=== PATIENT | female | born 1960 | race African-American/Black ===

== ENCOUNTER 2017-09-16 21:40 | Observation (INO) ==
--- NOTE | 2017-09-16 22:13 | ED ---
HPI General Chief Complaint: Shortness of Breath/Dyspnea Stated Complaint: SOB Time Seen by Provider: 09/16/17 21:55 Source: patient Mode of arrival: EMS Limitations: no limitations History of Present Illness 57-year-old female complains of shortness of breath. Patient states that his symptoms started yesterday. Patient states that she had productive cough and shortness of breath since yesterday. Patient states that she has intermittent fever at home. Patient denies any chest pain. Patient has history of COPD. Patient is a smoker. Patient has not been using her inhaler or nebulizer treatment at home. Patient also has history hypertension, high lipidemia. EMS was called. Patient was given DuoNeb unit dose treatment 1 and Solu-Medrol 125 mg IV on with ED. Patient states that she feeling better now. Patient also has been taking clindamycin 300 mg 3 times a day as needed for dental infection recently. Patient states that she has intermittent swelling lower extremity recently, worse for the past 3 days. Patient denies any recent injury to the lower extremity. Patient denies any history of DVT or PE. Complaint: shortness of breath and cough Onset (ago): day(s) Context: medication noncompliance and smoke/fume exposure Severity: severe Consistency/Duration: constant and progressively worsening Relieving factors: bronchodilators Exacerbating factors: nothing Known history of: COPD Associated symptoms: fever, cough, wheezing, sputum production and lower extremity pain Treatment prior to arrival: bronchodilator Related Data Home oxygen amount: none Home Medications Medication Instructions Recorded Confirmed amlodipine 10 mg PO DAILY 09/16/17 09/16/17 clindamycin HCl 300 mg PO TID 09/16/17 09/16/17 clonidine HCl 0.2 mg PO BID 09/16/17 09/16/17 hydralazine 25 mg PO QID 09/16/17 09/16/17 losartan 25 mg PO DAILY 09/16/17 09/16/17 oxycodone-acetaminophen 1 tab PO Q4-6H PRN 09/16/17 09/16/17 Allergies Allergy/AdvReac Type Severity Reaction Status Date / Time No Known Allergies Allergy Unverified 09/16/17 21:51 Review of Systems Except as stated in HPI: all other systems reviewed are negative [facility], [facility] Medical History Medical History Asthma (Acute) COPD (chronic obstructive pulmonary disease) (Acute) GERD (gastroesophageal reflux disease) (Acute) Social History Social History Substance History: No History of Abuse Smoking Status: Current every day smoker Tobacco Type: Cigarettes How Often Do You Have a Drink Containing Alcohol: Monthly or less Recent Travel in [facility] within the Last 8 Weeks: No Recent Out of Country Travel within the Last 8 Weeks: No Immunization History Tetanus Immunization: Unsure Hx Influenza Vaccine This Season: No Exam Narrative Exam Narrative: GENERAL: Well-nourished, well-developed patient. SKIN: Focused skin assessment warm/dry. HEAD: Normocephalic. EYES: No scleral icterus. No injection or drainage. NECK: Supple, trachea midline. No JVD or lymphadenopathy. CARDIOVASCULAR: Regular rate and rhythm without murmurs, gallops, or rubs. RESPIRATORY: Breath sounds equal bilaterally. No accessory muscle use. Patient has moderate expiratory wheezes bilaterally. Few rhonchi at the bases. GASTROINTESTINAL: Abdomen soft, non-tender, nondistended. MUSCULOSKELETAL: No cyanosis, or edema. BACK: Nontender without obvious deformity. No CVA tenderness. Neurologic exam normal. Course Initial Documented Vital Signs Temperature 99.0 F 09/16/17 21:51 Pulse Rate 91 H 09/16/17 21:51 Respiratory Rate 20 09/16/17 21:51 Blood Pressure 148/106 H 09/16/17 21:51 Pulse Oximetry 94 L 09/16/17 21:51 Last Documented Vital Signs Temperature 99.0 F 09/16/17 21:51 Pulse Rate 84 09/16/17 23:58 Respiratory Rate 18 09/16/17 23:58 Blood Pressure 145/99 H 09/16/17 23:58 Pulse Oximetry 96 09/16/17 23:58 Medical Decision Making MDM Narrative Medical decision making narrative: 57-year-old female with complains of shortness of breath. History of COPD. Patient has not been using her inhaler and nebulizer machine at home as directed. Patient is a smoker. EMS was called. Patient was given DuoNeb 1 and so Medrol [address] IV [address] the way to the ED. Albuterol with Atrovent unit dose treatment 2. Differential Diagnosis Differential Diagnosis: Differential diagnosis including acute exacerbation COPD , bronchitis, pneumonia, PE, pneumothorax. Lab Data Lab results reviewed: Yes I reviewed the patient's lab results. Result diagrams: 09/16/17 22:15 09/16/17 22:15 Lab Results 09/16/17 09/16/17 09/16/17 Range/Units 22:15 22:15 22:15 WBC 4.0 (4.0-11.0) th/mm3 RBC 4.37 (4.00-5.30) mil/mm3 Hgb 11.9 (11.6-15.3) gm/dL Hct 35.9 (35.0-46.0) % MCV 82.1 (80.0-100.0) fL MCH 27.3 (27.0-34.0) pg MCHC 33.3 (32.0-36.0) % RDW 15.5 (11.6-17.2) % Plt Count 219 (150-450) th/mm3 MPV 7.8 (7.0-11.0) fL Neut % (Auto) 65.7 (16.0-70.0) % Lymph % (Auto) 21.2 (9.0-44.0) % [place] % (Auto) 12.2 H (0.0-8.0) % Eos % (Auto) 0.4 (0.0-4.0) % Baso % (Auto) 0.5 (0.0-2.0) % Neut # (Auto) 2.6 (1.8-7.7) th/mm3 Lymph # (Auto) 0.9 L (1.0-4.8) th/mm3 [place] # (Auto) 0.5 (0.0-0.9) th/mm3 Eos # (Auto) 0.0 (0.0-0.4) th/mm3 Baso # (Auto) 0.0 (0.0-0.2) th/mm3 WBC Differential . Differential Comment Auto diff final PT 11.9 H (9.8-11.6) sec INR 1.2 Ratio APTT 30.0 (24.3-30.1) sec Sodium 137 (136-145) meq/L Potassium 4.0 (3.5-5.1) meq/L Chloride 105 (98-107) meq/L Carbon Dioxide 27.5 (21.0-32.0) meq/L Anion Gap 5 (5-15) meq/L BUN 18 (7-18) mg/dL Creatinine 1.12 H (0.50-1.00) mg/dL Estimated GFR 61 L (>89) mL/min Random Glucose 100 (74-106) mg/dL Calcium 8.2 L (8.5-10.1) mg/dL Total Bilirubin 0.3 (0.2-1.0) mg/dL AST 31 (15-37) U/L ALT 19 (10-53) U/L Alkaline Phosphatase 128 H (45-117) U/L B-Natriuretic Peptide (0-100) pg/mL Total Protein 7.5 (6.4-8.2) g/dL Albumin 2.5 L (3.4-5.0) g/dL 09/16/17 Range/Units 22:15 WBC (4.0-11.0) th/mm3 RBC (4.00-5.30) mil/mm3 Hgb (11.6-15.3) gm/dL Hct (35.0-46.0) % MCV (80.0-100.0) fL MCH (27.0-34.0) pg MCHC (32.0-36.0) % RDW (11.6-17.2) % Plt Count (150-450) th/mm3 MPV (7.0-11.0) fL Neut % (Auto) (16.0-70.0) % Lymph % (Auto) (9.0-44.0) % [place] % (Auto) (0.0-8.0) % Eos % (Auto) (0.0-4.0) % Baso % (Auto) (0.0-2.0) % Neut # (Auto) (1.8-7.7) th/mm3 Lymph # (Auto) (1.0-4.8) th/mm3 [place] # (Auto) (0.0-0.9) th/mm3 Eos # (Auto) (0.0-0.4) th/mm3 Baso # (Auto) (0.0-0.2) th/mm3 WBC Differential Differential Comment PT (9.8-11.6) sec INR Ratio APTT (24.3-30.1) sec Sodium (136-145) meq/L Potassium (3.5-5.1) meq/L Chloride (98-107) meq/L Carbon Dioxide (21.0-32.0) meq/L Anion Gap (5-15) meq/L BUN (7-18) mg/dL Creatinine (0.50-1.00) mg/dL Estimated GFR (>89) mL/min Random Glucose (74-106) mg/dL Calcium (8.5-10.1) mg/dL Total Bilirubin (0.2-1.0) mg/dL AST (15-37) U/L ALT (10-53) U/L Alkaline Phosphatase (45-117) U/L B-Natriuretic Peptide 784 H (0-100) pg/mL Total Protein (6.4-8.2) g/dL Albumin (3.4-5.0) g/dL Imaging Data Radiologist's impression: Chest X-Ray 09/16/17 22:02 CONCLUSION: 1. Hyperlucency of the left lung base indicating a possible basilar pneumothorax. Defined pleural line is not seen. This could be further evaluated with left side up decubitus chest radiograph or with noncontrast chest CT. 2. Enlarged cardiac silhouette. 3. Hyperaeration of the lungs suggesting possible emphysema. Discharge Plan Discharge Disposition Patient Disposition: 30 Still Patient Discharge Details Diagnosis: Acute exacerbation of chronic obstructive airways disease Physicians Team ED Provider: Phil Dominguez Primary Care Provider: Primary Care Gretchen Rucker Rxs /Orders / Referrals /Forms Prescriptions: No Action clindamycin HCl 150 mg Capsule 300 mg PO TID RF: 0 hydralazine 25 mg Tablet 25 mg PO QID RF: 0 oxycodone-acetaminophen 5-325 mg Tablet 1 tab PO Q4-6H PRN (Reason: Pain) RF: 0 clonidine HCl 0.2 mg Tablet 0.2 mg PO BID RF: 0 amlodipine 10 mg Tablet 10 mg PO DAILY RF: 0 losartan 25 mg Tablet 25 mg PO DAILY RF: 0 Discharge Interventions Interventions: Vital Signs Last Done: 09/16/17 23:58 Status ED Status: With Doctor
--- NOTE | 2017-09-16 22:35 | XR ---
EXAM DATE: 09/16/2017 10:19 PM EDT AGE/SEX: 57 years / Female INDICATIONS: Shortness of breath today. CLINICAL DATA: This is the patient's initial encounter. Patient reports that signs and symptoms have been present for 1 day and indicates a pain score of 1/10. MEDICAL/SURGICAL HISTORY: None. None. COMPARISON: No prior exams available for comparison. FINDINGS: Single AP view the chest. Hyperaeration of the lungs suggesting possible emphysema. There is asymmetr ic lucency at the left lung base indicating possible basilar pneumothorax. A discrete pleural line is not identified. Lungs are clear. Cardiac silhouette is mildly enlarged. No evidence of pleural effus ion. CONCLUSION: 1. Hyperlucency of the left lung base indicating a possible basilar pneumothorax. Defined pleural li ne is not seen. This could be further evaluated with left side up decubitus chest radiograph or with noncontrast chest CT. 2. Enlarged cardiac silhouette. 3. Hyperaeration of the lungs suggesting possible emphysema. Electronically signed by: Panchito Pickett MD 09/16/2017 10:33 PM EDT
[2017-09-16 22:50] LABS: Baso % (Auto) 0.5 % (0.0-2.0); Eos % (Auto) 0.4 % (0.0-4.0); Hematocrit 35.9 % (35.0-46.0); Hemoglobin 11.9 gm/dL (11.6-15.3); Lymph # (Auto) 0.9 th/mm3 (1.0-4.8); Lymph % (Auto) 21.2 % (9.0-44.0); Mean Corpuscular HGB Conc 33.3 % (32.0-36.0); Mean Corpuscular Hemoglobin 27.3 pg (27.0-34.0); Mean Corpuscular Volume 82.1 fL (80.0-100.0); Mean Platelet Volume 7.8 fL (7.0-11.0); Mono # (Auto) 0.5 th/mm3 (0.0-0.9); Mono % (Auto) 12.2 % (0.0-8.0); Neut # (Auto) 2.6 th/mm3 (1.8-7.7); Neut % (Auto) 65.7 % (16.0-70.0); Platelet Count 219 th/mm3 (150-450); Red Blood Count 4.37 mil/mm3 (4.00-5.30); Red Cell Distribution Width 15.5 % (11.6-17.2)
[2017-09-16 23:06] LABS: INR 1.2 Ratio; Prothrombin Time 11.9 sec (9.8-11.6)
[2017-09-16 23:11] LABS: Alkaline Phosphatase 128 U/L (45-117); Total Protein 7.5 g/dL (6.4-8.2)
[2017-09-16 23:22] LABS: Alanine Aminotransferase 19 U/L (10-53); Albumin 2.5 g/dL (3.4-5.0); Anion Gap 5 meq/L (5-15); Aspartate Aminotransferase 31 U/L (15-37); Blood Urea Nitrogen 18 mg/dL (7-18); Calcium 8.2 mg/dL (8.5-10.1); Carbon Dioxide 27.5 meq/L (21.0-32.0); Chloride 105 meq/L (98-107); Glomerular Filtration Rate 61 mL/min (>89); Glucose,Random 100 mg/dL (74-106); Sodium 137 meq/L (136-145)
--- NOTE | 2017-09-17 02:36 | CT ---
EXAM DATE: 09/17/2017 2:16 AM EDT AGE/SEX: 57 years / Female INDICATIONS: Dyspnea. Evaluate for pneumothorax. CLINICAL DATA: This is the patient's initial encounter. Patient reports that signs and symptoms have been present for 1 day and indicates a pain score of 3/10. MEDICAL/SURGICAL HISTORY: Chronic obstructive pulmonary disease. None. RADIATION DOSE: 5.10 CTDI (mGy) [place] [facility] [place]. . TECHNIQUE: Multiple contiguous axial images were obtained through the chest without contrast. Image s were obtained in suspended respiration using multiple row detector helical technique. Using automa jenifer exposure control and adjustment of the mA and/or kV according to patient size, radiation dose was kept as low as reasonably achievable to obtain optimal diagnostic quality images. DICOM format imag e data is available electronically for review and comparison. FINDINGS: Lungs: There is prominence to the interstitium of the upper and mid lungs. There is a small infiltra te with irregular margins and absence of air bronchograms in the posterior lateral right lower lung a nd several small pulmonary cysts in the lower right lung. There is hyperaeration of the left lower gloria ng which would account for the lucency seen on chest x-ray. No evidence of pneumothorax on either tiana e. Mediastinum: There is good visualization of the great vessels of the middle mediastinum. No evidenc e of mediastinal or hilar adenopathy/mass. Moderate panchamber cardiomegaly. Pleurae: No evidence of focal thickening or pleural effusion. Axillae: Unremarkable. Bony Structures: Unremarkable. CONCLUSION: 1. No evidence of pneumothorax. 2. Diffuse moderate severity interstitial disease in the mid and upper lungs bilaterally and patchy area of infiltrate in the posterior lateral right lower lung. Electronically signed by: Yinka Benito MD 09/17/2017 2:35 AM EDT
[2017-09-17] MEDS ORDERED: Bisacodyl 10 MG Supp RECTAL PRN (02:40)
[2017-09-17] MEDS ORDERED: Acetaminophen 325 MG Tablet PO PRN (02:40)
[2017-09-17] MEDS ORDERED: Temazepam 15 MG Capsule PO PRN (02:40)
[2017-09-17] MEDS ORDERED: Morphine Inj 4 MG/ML Vial IV.PUSH PRN (02:41)
--- NOTE | 2017-09-17 03:18 | P.HPIM ---
History of Present Illness Primary Care Physician: No Primary Care Physician History of Present Illness: This is a 57-year-old female with a PMH of HTN, COPD and Tobacco Abuse who presents the ER with complaints of SOB, wheezing and chest pain x1 day. Reports non-productive cough, but no sick contacts. Also notes bilateral lower extremity edema x3 days. No h/o CHF. On arrival, BP 145/99, HR 84, O2 sat 96% on 3L NC, Afebrile. CBC unremarkable. INR 1.2. Creatinine 1.12, no previous labs for comparison. BNP 784. CXR with hyperlucency left lung base possibly basilar pneumothorax. CT Chest with no evidence of pneumothorax, patchy infiltrate posterior lateral right lower lung. - Diagnosis (1) Chest pain (2) COPD (chronic obstructive pulmonary disease) (3) Lower extremity edema (4) Tobacco abuse Inpatient Certification: I certify that the inpatient services were ordered in accordance with Medicare regulations governing the order. This includes certification that hospital inpatient services are reasonable and necessary and in the case of services not specified as inpatient-only under 42 CFR 419.22(n), that they are appropriately provided as inpatient services in accordance to with the 2-midnight benchmark under 43 CFR 412.3(e) Review of Systems PAST FAMILY HISTORY: Reviewed. 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 - Medical History Medical History: Medical History (Last Reviewed 09/16/17 @ 22:08 by Phil Dominguez MD) Asthma COPD (chronic obstructive pulmonary disease) GERD (gastroesophageal reflux disease) - Tobacco History Tobacco Use In Past 30 Days: Yes Smoking Status: Current every day smoker Tobacco Type: Cigarettes - Alcohol History How Often Do You Have a Drink Containing Alcohol: Monthly or less - Substance Use History Substance History: No History of Abuse - Travel History Recent Travel in the [place] Within the Last 8 Weeks: No Recent Travel Out of the Country Within the Last 8 Weeks: No - Immunization History Tetanus Immunization: Unsure Hx Influenza Vaccine This Season: No Medications and Allergies Active Medications: Active Medications Acetaminophen (Tylenol) 650 mg PO Q4H PRN PRN Reason: Temp > 100.4 Hydrocodone Bitart/Acetaminophen ([place] 5/325) 1 tab PO Q4H PRN PRN Reason: PAIN 3-5 Al Hydroxide/Mg Hydroxide (Milk Of Magnesia Liq) 30 ml PO Q12H PRN PRN Reason: Mild Constipation Albuterol (Duoneb Neb (Prn)) 1 ampul NEB Q2HR NEB PRN PRN Reason: SOB/WHEEZING Albuterol (Duoneb Neb (Arnie)) 1 ampul NEB Q4HR WHILE AWAKE NEB [facility] Bisacodyl (Dulcolax Supp) 10 mg RECTAL DAILY PRN PRN Reason: SEVERE CONSITIPATION Budesonide/Formoterol Fumarate (Symbicort 160/4.5 Mcg Inh) 2 puff INH BID [facility] Guaifenesin (Mucinex Er) 600 mg PO BID [facility] Heparin Sodium (Porcine) (Heparin Inj) 5,000 units SQ Q12H [facility] Lactulose (Lactulose Liq) 30 ml PO DAILY PRN PRN Reason: SEVERE CONSITIPATION Methylprednisolone Sodium Succinate (Solumedrol Inj) 40 mg IV.PUSH Q6H ARNIE Morphine Sulfate (Morphine Inj) 2 mg IV.PUSH Q4H PRN PRN Reason: PAIN 6-10 Ondansetron HCl (Zofran Inj) 4 mg IV.PUSH Q6H PRN PRN Reason: NAUSEA OR VOMITING Senna/Docusate Sodium (Vianca-Colace) 1 tab PO BID [facility] Sennosides (Senokot) 17.2 mg PO Q12H PRN PRN Reason: Moderate Constipation Temazepam (Restoril) 15 mg PO HS PRN PRN Reason: INSOMNIA Allergies Allergy/AdvReac Type Severity Reaction Status Date / Time No Known Allergies Allergy Unverified 09/16/17 21:51 Home Medications Medication Instructions Recorded Confirmed Type amlodipine 10 mg PO DAILY 09/16/17 09/16/17 History clindamycin HCl 300 mg PO TID 09/16/17 09/16/17 History clonidine HCl 0.2 mg PO BID 09/16/17 09/16/17 History hydralazine 25 mg PO QID 09/16/17 09/16/17 History losartan 25 mg PO DAILY 09/16/17 09/16/17 History oxycodone-acetaminophen 1 tab PO Q4-6H PRN 09/16/17 09/16/17 History Exam Vital signs: Vital Signs 09/16/17 21:51 09/16/17 22:08 09/16/17 22:30 Temperature 99.0 F Pulse Rate 91 H 87 87 Respiratory Rate 20 16 16 Blood Pressure 148/106 H Pulse Oximetry 94 L 09/16/17 23:58 09/17/17 01:48 Temperature Pulse Rate 84 81 Respiratory Rate 18 18 Blood Pressure 145/99 H 148/96 H Pulse Oximetry 96 95 Intake & Output 09/16/17 09/16/17 09/17/17 06:59 18:59 06:59 Weight 45.359 kg Narrative: PE: GENERAL: Middle-aged black female in no acute distress. HEENT: PERRLA, EOMI. No scleral icterus or conjunctival pallor. No lid lag or facial droop. CARDIOVASCULAR: Regular rate and rhythm. No obvious murmurs to auscultation. No chest tenderness to palpation. RESPIRATORY: No obvious rhonchi. Occasional wheezing. Clear to auscultation. Breath sounds equal bilaterally. GASTROINTESTINAL: Abdomen soft, non-tender, nondistended. BS normal. MUSCULOSKELETAL: Extremities without clubbing, cyanosis, 2+edema. No obvious deformities. NEUROLOGICAL: Awake, alert and oriented x4. No focal neurologic deficits. Moving both upper and lower extremities spontaneously. Results - Labs CBC & Chem 7: 09/16/17 22:15 09/16/17 22:15 Labs: Short CBC 09/16/17 Range/Units 22:15 WBC 4.0 (4.0-11.0) th/mm3 Hgb 11.9 (11.6-15.3) gm/dL Hct 35.9 (35.0-46.0) % Plt Count 219 (150-450) th/mm3 BMP 09/16/17 22:15 Sodium 137 Potassium 4.0 Chloride 105 Carbon Dioxide 27.5 BUN 18 Creatinine 1.12 H Calcium 8.2 L Liver Function 09/16/17 Range/Units 22:15 Total Bilirubin 0.3 (0.2-1.0) mg/dL AST 31 (15-37) U/L ALT 19 (10-53) U/L Alkaline Phosphatase 128 H (45-117) U/L Albumin 2.5 L (3.4-5.0) g/dL - Imaging Impressions Chest X-Ray 09/16/17 22:02 CONCLUSION: 1. Hyperlucency of the left lung base indicating a possible basilar pneumothorax. Defined pleural line is not seen. This could be further evaluated with left side up decubitus chest radiograph or with noncontrast chest CT. 2. Enlarged cardiac silhouette. 3. Hyperaeration of the lungs suggesting possible emphysema. Chest CT 09/17/17 01:27 CONCLUSION: 1. No evidence of pneumothorax. 2. Diffuse moderate severity interstitial disease in the mid and upper lungs bilaterally and patchy area of infiltrate in the posterior lateral right lower lung. Caprini VTE Risk Assessment Caprini VTE Risk Assessment: No/Low Risk (score <= 1) Caprini Risk Assessment Model: Point Value = 1 Point Value = 2 Point Value = 3 Point Value = 5 Age 41-60 Minor surgery BMI > 25 kg/m2 Swollen legs Varicose veins or History of unexplained or recurrent spontaneous Oral contraceptives or hormone replacement Sepsis (< 1 month) Serious lung disease, including pneumonia (< 1 month) Abnormal pulmonary function Acute myocardial infarction Congestive heart failure (< 1 month) History of inflammatory bowel disease Medical patient at bed rest Age 61-74 Arthroscopic surgery Major open surgery (> 45 min) Laparoscopic surgery (> 45 min) Malignancy Confined to bed (> 72 hours) Immobilizing plaster cast Central venous access Age >= 75 History of VTE Family history of VTE Factor V Leiden Prothrombin [id number] Lupus anticoagulant Anticardiolipin antibodies Elevated serum homocysteine Heparin-induced thrombocytopenia Other congenital or acquired thrombophilia Stroke (< 1 month) Elective arthroplasty Hip, pelvis, or leg fracture Acute spinal cord injury (< 1 month) Prophylaxis Regimen: Total Risk Factor Score Risk Level Prophylaxis Regimen 0-1 Low Early ambulation 2 Moderate Order ONE of the following: *Sequential Compression Device (SCD) *Heparin 5000 units SQ BID 3-4 Higher Order ONE of the following medications: *Heparin 5000 units SQ TID *Enoxaparin/Lovenox 40 mg SQ daily (WT < 150 kg, CrCl > 30 mL/min) *Enoxaparin/Lovenox 30 mg SQ daily (WT < 150 kg, CrCl > 10-29 mL/min) *Enoxaparin/Lovenox 30 mg SQ BID (WT < 150 kg, CrCl > 30 mL/min) AND/OR *Sequential Compression Device (SCD) 5 or more Highest Order ONE of the following medications: *Heparin 5000 units SQ TID (Preferred with Epidurals) *Enoxaparin/Lovenox 40 mg SQ daily (WT < 150 kg, CrCl > 30 mL/min) *Enoxaparin/Lovenox 30 mg SQ daily (WT < 150 kg, CrCl > 10-29 mL/min) *Enoxaparin/Lovenox 30 mg SQ BID (WT < 150 kg, CrCl > 30 mL/min) AND *Sequential Compression Device (SCD) Assessment and Plan - Assessment (1) Chest pain Code(s): R07.9 - Chest pain, unspecified Status: Acute (2) COPD (chronic obstructive pulmonary disease) Code(s): J44.9 - Chronic obstructive pulmonary disease, unspecified Status: Acute (3) Lower extremity edema Code(s): R60.0 - Localized edema Status: Acute (4) Tobacco abuse Code(s): Z72.0 - Tobacco use Status: Acute - Plan A/P: 1. COPD: Chronic Respiratory Failure w/ Acute Exacerbation. Moderate to Severe, s/p Solu-Medrol and DuoNeb by EMS w/ some improvement, but persistent SOB/wheezing. Solu-Medrol q6h, DuoNeb q4 and q2h prn, Symbicort, Mucinex. 2. Chest Pain: likely secondary to above. Initial trop negative, will check serial cardiac enzymes. CXR w/ possible pneumothorax, however CT Chest negative for pneumo, +infiltrate, will start on Levaquin. 3. Lower Ext Edema: denies h/o CHF, BNP elevated at 784, CXR w/ no pleural effusions, will check Echo to eval for underlying cardiomyopathy. 4. Tobacco Abuse: Pt counselled. Ativan prn. Avoid NicoDerm in light of chest pain to avoid vasoconstriction. 5. DVT Prophylaxis: SCD/Teds 6. Social work for d/c planning as needed 7. Case discussed w/ ER physician at length, labs/records/imaging reviewed by me.
[2017-09-17] MEDS: MethylPREDNISolone Sod Succinate Inj 40 MG/ML Vial IV.PUSH SCH ×2 (03:22→08:42)
--- NOTE | 2017-09-17 08:48 | ECG ---
Date Performed: 09/16/2017 Time Performed: 21:52:20 PTAGE: 57 years EKG: Sinus rhythm RIGHT ATRIAL ENLARGEMENT LEFT ATRIAL ENLARGEMENT BORDERLINE RIGHT AXIS DEVIATION MODERATE T-WAVE ABN ORMALITY, CONSIDER ANTERIOR ISCHEMIA ABNORMAL ECG NO PREVIOUS TRACING DOCTOR: Kandy Baker Interpretating Date/Time 09/17/2017 08:46:32
[2017-09-17] MEDS ORDERED: Heparin - SQ 10,000 UNITS/ML Vial SQ SCH (09:00)
[2017-09-17] MEDS ORDERED: Budesonide-Formoterol 160/4.5 MCG 6 GM Inhaler INH SCH ×2 (09:00)
[2017-09-17] MEDS ORDERED: Senna/Docusate Sodium 8.6/50 MG Tablet PO SCH (09:00)
[2017-09-17] MEDS ORDERED: hydrALAZINE 25 MG Tablet PO SCH (09:00)
[2017-09-17] MEDS ORDERED: amLODIPine 10 MG Tablet PO SCH (09:00)
[2017-09-17] MEDS ORDERED: guaiFENesin 600 MG ER Tablet PO SCH (09:00)
--- NOTE | 2017-09-17 09:29 | P.PN ---
Subjective Interval history: Follow up for COPD Exacerbation, possible cardiomyopathy. Patient is currently resting in bed. No acute concerns. No chest pain, fever or chills. She does report significant fatigue and shortness of breath on minor ambulation. Currently on nasal cannula 2 L. Physical Exam Vital signs: Vital Signs 09/16/17 21:51 09/16/17 22:08 09/16/17 22:30 Temperature 99.0 F Pulse Rate 91 H 87 87 Respiratory Rate 20 16 16 Blood Pressure 148/106 H Pulse Oximetry 94 L 09/16/17 23:58 09/17/17 01:48 09/17/17 03:50 Temperature 97.7 F Pulse Rate 84 81 62 Respiratory Rate 18 18 22 Blood Pressure 145/99 H 148/96 H 154/101 H Pulse Oximetry 96 95 09/17/17 04:08 09/17/17 07:09 09/17/17 07:27 Temperature 98.2 F Pulse Rate 79 74 80 Respiratory Rate 16 24 18 Blood Pressure 164/100 H Pulse Oximetry 09/17/17 09:00 Temperature Pulse Rate 74 Respiratory Rate Blood Pressure Pulse Oximetry Intake & Output 09/16/17 09/17/17 09/17/17 18:59 06:59 18:59 Intake Total 150 / 150 Balance 150 / 150 Weight 45.359 kg Intake: IV 150 / 150 Levaquin 750 mg Premix Inj 150 150 / 150 ML @ 100 mls/hr IV.SIG Q24H [facility] Rx#:[id number] Narrative: GENERAL: Alert, Oriented x 3, NAD. SKIN: Warm and dry. HEAD: Normocephalic. EYES: No scleral icterus. No injection or drainage. NECK: Supple, trachea midline. No JVD or lymphadenopathy. CARDIOVASCULAR: Regular rate and rhythm without murmurs, gallops, or rubs. RESPIRATORY: Posterior expiratory rhonchi, moderate air entry, no appreciable wheezing, crackles. GASTROINTESTINAL: Abdomen soft, non-tender, nondistended. MUSCULOSKELETAL: No cyanosis. Lower ext 1+ edema. BACK: Nontender without obvious deformity. No CVA tenderness. Results - Labs CBC & Chem 7: 09/16/17 22:15 09/16/17 22:15 Laboratory Results - last 24 hr 09/16/17 09/16/17 09/16/17 22:15 22:15 22:15 WBC 4.0 RBC 4.37 Hgb 11.9 Hct 35.9 MCV 82.1 MCH 27.3 MCHC 33.3 RDW 15.5 Plt Count 219 MPV 7.8 Neut % (Auto) 65.7 Lymph % (Auto) 21.2 [place] % (Auto) 12.2 H Eos % (Auto) 0.4 Baso % (Auto) 0.5 Neut # (Auto) 2.6 Lymph # (Auto) 0.9 L [place] # (Auto) 0.5 Eos # (Auto) 0.0 Baso # (Auto) 0.0 WBC Differential . Differential Comment Auto diff final PT 11.9 H INR 1.2 APTT 30.0 Sodium 137 Potassium 4.0 Chloride 105 Carbon Dioxide 27.5 Anion Gap 5 BUN 18 Creatinine 1.12 H Estimated GFR 61 L Random Glucose 100 Calcium 8.2 L Total Bilirubin 0.3 AST 31 ALT 19 Alkaline Phosphatase 128 H Troponin I B-Natriuretic Peptide Total Protein 7.5 Albumin 2.5 L 09/16/17 09/17/17 22:15 07:05 WBC RBC Hgb Hct MCV MCH MCHC RDW Plt Count MPV Neut % (Auto) Lymph % (Auto) [place] % (Auto) Eos % (Auto) Baso % (Auto) Neut # (Auto) Lymph # (Auto) [place] # (Auto) Eos # (Auto) Baso # (Auto) WBC Differential Differential Comment PT INR APTT Sodium Potassium Chloride Carbon Dioxide Anion Gap BUN Creatinine Estimated GFR Random Glucose Calcium Total Bilirubin AST ALT Alkaline Phosphatase Troponin I 0.03 B-Natriuretic Peptide 784 H Total Protein Albumin Microbiology 09/16/17 22:17 Nasal Wash Influenza Types A,B Antigen - Final Negative for FLU A and B antigen Infection due to influenza A or B cannot be ruled out since the antigen present in the sample may be below the detection limit of the test. - Imaging Impressions Chest X-Ray 09/16/17 22:02 CONCLUSION: 1. Hyperlucency of the left lung base indicating a possible basilar pneumothorax. Defined pleural line is not seen. This could be further evaluated with left side up decubitus chest radiograph or with noncontrast chest CT. 2. Enlarged cardiac silhouette. 3. Hyperaeration of the lungs suggesting possible emphysema. Chest CT 09/17/17 01:27 CONCLUSION: 1. No evidence of pneumothorax. 2. Diffuse moderate severity interstitial disease in the mid and upper lungs bilaterally and patchy area of infiltrate in the posterior lateral right lower lung. Assessment and Plan - Assessment (1) Chest pain Code(s): R07.9 - Chest pain, unspecified Status: Acute (2) COPD (chronic obstructive pulmonary disease) Code(s): J44.9 - Chronic obstructive pulmonary disease, unspecified Status: Acute (3) Lower extremity edema Code(s): R60.0 - Localized edema Status: Acute (4) Tobacco abuse Code(s): Z72.0 - Tobacco use Status: Acute - Plan This is a 57-year-old female with a PMH of HTN, COPD and Tobacco Abuse who presents the ER on 09/17/2017 with complaints of SOB, wheezing and chest pain x1 day. Also notes bilateral lower extremity edema x3 days. No h/o CHF. Chest pain - First troponin was 0.03. Second troponin pending. - Acute coronary syndrome less likely. Possible cardiomyopathy - Likely due to long standing hypertension. BNP 784 on admission. - 2D echo pending. - Will start patient on Lasix 40mg IV Q12hrs for 2 days. She may need Torsemide PO upon discharge. Hypertension - Continue Losartan 25mg Qday but hold Hydralazine and Amlodipine as they might lower BP too much. - If needed, we will slowly introduce other BP meds. She also may need beta nathaly depending on the Echo findings. Probable COPD Exacerbation Right sided Pneumonia - CT chest showed no Pneumothorax. - However CT chest showed diffuse moderate interstitial disease as well as posterior lateral right lower lung infiltrates - Continue supplemental oxygen, breathing treatments, Levaquin 750 mg daily. - Continue Solu-medrol 40mg Q6hrs Full code. Heparin 5000 units every 12 hours SQ. Discharge plan: Possible discharge on 09/18/2017.
--- NOTE | 2017-09-18 14:18 | ECHRPT ---
Indication: Cardiomyopathy CONCLUSIONS The left ventricular systolic function is normal with an estimated ejection fraction in the range of 55-60%. Mild concentric left ventricular hypertrophy. Normal left ventricular size. The right ventricle is dilated. The right atrium is dilated. Atrial septal aneurysm is present. Calcification of both mitral valve leaflets. Trace mitral valve regurgitation. Aortic valve sclerosis is present. There is severe tricuspid regurgitation. The estimated pulmonary arterial pressure is 63.6 mmHg. Mild pulmonary valve regurgitation. BP: / HR: Rhythm: Sinus MEASUREMENTS (Male / Female) Normal Values Technical Quality:Fair 2D ECHO LV Diastolic Diameter PLAX 3.7 cm 4.2 - 5.9 / 3.9 - 5.3 cm LV Systolic Diameter PLAX 2.5 cm IVS Diastolic Thickness 1.2 cm 0.6 - 1.0 / 0.6 - 0.9 cm LVPW Diastolic Thickness 1.0 cm 0.6 - 1.0 / 0.6 - 0.9 cm LV Relative Wall Thickness 0.6 RV Internal Dim ED PLAX 3.4 cm LVOT Diameter 1.9 cm LA Systolic Diameter LX 3.5 cm 3.0 - 4.0 / 2.7 - 3.8 cm M-MODE Aortic Root Diameter MM 2.2 cm LA Systolic Diameter MM 3.4 cm LA Ao Ratio MM 1.5 AV Cusp Separation MM 1.5 cm DOPPLER AV Peak Velocity 156.0 cm/s AV Peak Gradient 9.7 mmHg LVOT Peak Velocity 99.7 cm/s LVOT Peak Gradient 4.0 mmHg AV Area Cont Eq pk 1.8 cm MV Area PHT 2.4 cm Mitral E Point Velocity 58.2 cm/s Mitral A Point Velocity 75.5 cm/s Mitral E to A Ratio 0.8 LV E' Lateral Velocity 6.5 cm/s Mitral E to LV E' Lateral Ratio 8.9 LV E' Septal Velocity 5.2 cm/s Mitral E to LV E' Septal Ratio 11.3 TR Peak Velocity 366.0 cm/s TR Peak Gradient 53.6 mmHg Right Atrial Pressure 10.0 mmHg Pulmonary Artery Systolic Pressu 63.6 mmHg Right Ventricular Systolic Press 63.6 mmHg FINDINGS LEFT VENTRICLE The left ventricular systolic function is normal with an estimated ejection fraction in the range of 55-60%. Mild concentric left ventricular hypertrophy. Normal left ventricular size. RIGHT VENTRICLE The right ventricle is dilated. LEFT ATRIUM The left atrial size is normal. RIGHT ATRIUM The right atrium is dilated. ATRIAL SEPTUM Atrial septal aneurysm is present (benign finding). AORTA The aortic root and proximal ascending aorta are normal in size on limited imaging. MITRAL VALVE Calcification of both mitral valve leaflets. Trace mitral valve regurgitation. AORTIC VALVE Trileaflet aortic valve. Aortic valve sclerosis is present. TRICUSPID VALVE Structurally normal tricuspid valve. There is moderate tricuspid regurgitation. The estimated pulmonary arterial pressure is 63.6 mmHg. PULMONARY VALVE Mild pulmonary valve regurgitation. VESSELS The inferior vena cava is normal in size. PERICARDIUM No pericardial effusion. Rah Cleaning MD, FACC, [facility] [place] (Electronically Signed) Final Date:18 September 2017 14:17
[2017-09-19 20:05] VITALS: BP 122/60; PULSE 60; RESP 20; TEMP 98.6; O2SAT 99
== END 2017-09-17 13:17 | disposition home or self-care (01) ==
LOC: NEPFCDU 21:40 → NEPE 21:40 → NEDA 09-17 02:58 → INTOOBSV 09-17 02:58 → NEPFCDU 09-17 03:31
PROVIDERS: ADMIT Hospitalist; ATTEND Hospitalist
DX: F17.210 Nicotine dependence, cigarettes, uncomplicated; Z91.14 Patient's other noncompliance with medication regimen; E78.5 Hyperlipidemia, unspecified; Z79.899 Other long term (current) drug therapy; J96.20 Acute and chronic respiratory failure, unspecified whether with hypoxia or hypercapnia; J44.0 Chronic obstructive pulmonary disease with (acute) lower respiratory infection; R07.89 Other chest pain; J18.9 Pneumonia, unspecified organism; J44.1 Chronic obstructive pulmonary disease with (acute) exacerbation; R60.0 Localized edema; K21.9 Gastro-esophageal reflux disease without esophagitis; I10 Essential (primary) hypertension; I08.2 Rheumatic disorders of both aortic and tricuspid valves

== ENCOUNTER 2017-10-20 00:41 | Observation (INO) ==
--- NOTE | 2017-10-20 01:25 | ED ---
HPI General Chief Complaint: Shortness of Breath/Dyspnea Stated Complaint: SOB Time Seen by Provider: 10/20/17 01:06 Source: patient Mode of arrival: ambulatory Limitations: no limitations History of Present Illness 57-year-old female patient with history of heroin, IV drug use, COPD, smoking, presents to the ED with a CC "I can hardly breathe." She has had mild SOB for the past 1-2 months that became worse yesterday morning with exertion. During this episode she became light headed and laid down on her bed, where she may have lost consciousness briefly. Since this episode she has continued to have exertional dyspnea with associated chills and diaphoresis. She also complains of right-sided mid-thoracic crampy pain that is worse with inspiration. She denies chest pain and fever. Related Data Previous Rx's Medication Instructions Recorded amlodipine 5 mg PO DAILY 30 Days #15 tab 09/17/17 budesonide-formoterol [Symbicort] 2 puff INH BID 30 Days g 09/17/17 guaifenesin [Mucinex] 600 mg PO BID #20 tab 09/17/17 levofloxacin [Levaquin] 750 mg PO DAILY #6 tab 09/17/17 oxycodone-acetaminophen 1 tab PO Q6H PRN #12 tab 09/17/17 potassium chloride [K-Tab] 10 meq PO DAILY #30 tab 09/17/17 prednisone 50 mg PO DAILY #5 tab 09/17/17 torsemide 10 mg PO DAILY #30 tab 09/17/17 Allergies Allergy/AdvReac Type Severity Reaction Status Date / Time No Known Allergies Allergy Verified 10/16/17 14:48 Review of Systems ROS: all other systems reviewed are negative [facility] Medical History Medical History Asthma (Acute) COPD (chronic obstructive pulmonary disease) (Acute) GERD (gastroesophageal reflux disease) (Acute) Social History Social History Substance History: No History of Abuse Second Hand Smoke Exposure: Yes Smoking Status: Current every day smoker Tobacco Type: Cigarettes How Often Do You Have a Drink Containing Alcohol: Never Recent Travel in [facility] within the Last 8 Weeks: No Recent Out of Country Travel within the Last 8 Weeks: No Exam Narrative Exam Narrative: GENERAL: Appears in mild distress. Alert and oriented x4. SKIN: Warm and dry. HEAD: Atraumatic. Normocephalic. EYES: Pupils equal and round. No scleral icterus. No injection or drainage. ENT: No nasal bleeding or discharge. Mucous membranes pink and moist. NECK: Trachea midline. No JVD. Track mccall on the left anterior chest. CARDIOVASCULAR: Regular rate and rhythm. No rubs or murmurs. RESPIRATORY: No accessory muscle use. Bilateral wheezing on expiration. Breath sounds equal bilaterally. GASTROINTESTINAL: Abdomen soft, non-tender, nondistended. Hepatic and splenic margins not palpable. MUSCULOSKELETAL: Extremities without clubbing, cyanosis, or edema. No obvious deformities. NEUROLOGICAL: Awake and alert. No obvious cranial nerve deficits. Motor grossly within normal limits. Five out of 5 muscle strength in the arms and legs. Normal speech. PSYCHIATRIC: Appropriate mood and affect; insight and judgment normal. Course Initial Documented Vital Signs Temperature 98.7 F 10/20/17 00:51 Pulse Rate 82 10/20/17 00:51 Respiratory Rate 18 10/20/17 00:51 Blood Pressure 194/130 H 10/20/17 00:51 Pulse Oximetry 97 10/20/17 00:51 Last Documented Vital Signs Temperature 98.7 F 10/20/17 00:51 Pulse Rate 85 10/20/17 00:55 Respiratory Rate 20 10/20/17 00:55 Blood Pressure 194/130 H 10/20/17 00:51 Pulse Oximetry 97 10/20/17 00:51 Medical Decision Making [facility] Narrative Medical decision making narrative: EKG did not show significant dysrhythmias. She does have T-wave inversions in V1 through V3. Her troponin is mildly elevated. She was initially given Solu-Medrol nebulizers with improvement in breathing. Chest x-ray did not show any signs of acute infiltrates. She admits that she has been running fevers as well, and considering her history IV drug use, fevers, and shortness of breath and syncope, plan would be to admit her for further evaluation of her heart. IV vancomycin was initiated after cultures were drawn. Case has been discussed with Dr. Arevalo for admission. Medical Screen Exam Complete: Yes Emergency Medical Condition: Yes Lab Data Lab results reviewed: Yes I reviewed the patient's lab results. Result diagrams: 10/20/17 01:20 09/07/18 01:20 Lab Results 10/20/17 10/20/17 10/20/17 Range/Units 01:20 01:20 01:20 WBC 4.3 (4.0-11.0) th/mm3 RBC 4.69 (4.00-5.30) mil/mm3 Hgb 13.0 (11.6-15.3) gm/dL Hct 38.3 (35.0-46.0) % MCV 81.7 (80.0-100.0) fL MCH 27.8 (27.0-34.0) pg MCHC 34.1 (32.0-36.0) % RDW 14.5 (11.6-17.2) % Plt Count 191 (150-450) th/mm3 MPV 7.6 (7.0-11.0) fL Neut % (Auto) 67.5 (16.0-70.0) % Lymph % (Auto) 20.0 (9.0-44.0) % [place] % (Auto) 11.0 H (0.0-8.0) % Eos % (Auto) 1.0 (0.0-4.0) % Baso % (Auto) 0.5 (0.0-2.0) % Neut # (Auto) 2.9 (1.8-7.7) th/mm3 Lymph # (Auto) 0.9 L (1.0-4.8) th/mm3 [place] # (Auto) 0.5 (0.0-0.9) th/mm3 Eos # (Auto) 0.0 (0.0-0.4) th/mm3 Baso # (Auto) 0.0 (0.0-0.2) th/mm3 WBC Differential . Differential Comment Auto diff final Sodium 139 (136-145) meq/L Potassium 3.9 (3.5-5.1) meq/L Chloride 104 (98-107) meq/L Carbon Dioxide 26.5 (21.0-32.0) meq/L Anion Gap 9 (5-15) meq/L BUN 14 (7-18) mg/dL Creatinine 0.92 (0.50-1.00) mg/dL Estimated GFR 76 L (>89) mL/min Random Glucose 87 (74-106) mg/dL Calcium 8.0 L (8.5-10.1) mg/dL Total Bilirubin 0.3 (0.2-1.0) mg/dL AST 22 (15-37) U/L ALT 14 (10-53) U/L Alkaline Phosphatase 100 (45-117) U/L Troponin I 0.06 H (0.02-0.05) ng/mL B-Natriuretic Peptide 468 H (0-100) pg/mL Total Protein 7.3 (6.4-8.2) g/dL Albumin 2.4 L (3.4-5.0) g/dL Imaging Data Attestation: I personally reviewed and interpreted this imaging study as follows : Radiologist's impression: Chest X-Ray 10/20/17 01:06 CONCLUSION: Cardiomegaly. Hyperaerated lungs. No infiltrates seen. ECG Data Attestation: I personally reviewed and interpreted this ECG as follows: Interpretation: EKG shows sinus rhythm at a rate of 87 bpm. T-wave inversions notable in V1 through V3. No acute ST elevations. Discharge Plan Discharge Disposition Patient Disposition: 30 Still Patient Discharge Condition Condition: Good Discharge Details Anticipated Discharge Date: 10/20/17 Diagnosis: Acute exacerbation of chronic obstructive airways disease, Chest pain, Elevated troponin, Syncope Physicians Team ED Provider: Dianne Oliveira Primary Care Provider: Primary Care Gretchen Rucker Rxs /Orders / Referrals /Forms Prescriptions: No Action budesonide-formoterol [Symbicort] 160-4.5 mcg/actuation Hfa Aerosol Inhaler 2 puff INH BID 30 Days RF: 11 guaifenesin [Mucinex] 600 mg Tablet Extended Release 12hr 600 mg PO BID Qty: 20 RF: 0 levofloxacin [Levaquin] 750 mg Tablet 750 mg PO DAILY Qty: 6 RF: 0 prednisone 50 mg Tablet 50 mg PO DAILY Qty: 5 RF: 0 torsemide 10 mg Tablet 10 mg PO DAILY Qty: 30 RF: 1 potassium chloride [K-Tab] 10 mEq Tablet Extended Release 10 meq PO DAILY Qty: 30 RF: 1 oxycodone-acetaminophen 5-325 mg Tablet 1 tab PO Q6H PRN (Reason: Pain) Qty: 12 RF: 0 amlodipine 10 mg Tablet 5 mg PO DAILY 30 Days Qty: 15 RF: 11 Status ED Status: With Doctor
[2017-10-20 01:36] LABS: Baso % (Auto) 0.5 % (0.0-2.0); Hematocrit 38.3 % (35.0-46.0); Lymph # (Auto) 0.9 th/mm3 (1.0-4.8); Mean Corpuscular HGB Conc 34.1 % (32.0-36.0); Mean Corpuscular Hemoglobin 27.8 pg (27.0-34.0); Mean Corpuscular Volume 81.7 fL (80.0-100.0); Mean Platelet Volume 7.6 fL (7.0-11.0); Mono # (Auto) 0.5 th/mm3 (0.0-0.9); Neut # (Auto) 2.9 th/mm3 (1.8-7.7); Neut % (Auto) 67.5 % (16.0-70.0); Platelet Count 191 th/mm3 (150-450); Red Blood Count 4.69 mil/mm3 (4.00-5.30); Red Cell Distribution Width 14.5 % (11.6-17.2); White Blood Count 4.3 th/mm3 (4.0-11.0)
--- NOTE | 2017-10-20 01:41 | XR ---
EXAM DATE: 10/20/2017 1:35 AM EDT AGE/SEX: 57 years / Female INDICATIONS: . Shortness of breath for 24 hours CLINICAL DATA: This is the patient's initial encounter. Patient reports that signs and symptoms have been present for 1 day and indicates a pain score of 5/10. MEDICAL/SURGICAL HISTORY: Chronic obstructive pulmonary disease. None. COMPARISON: [facility] [place], CHEST 1V SINGLE AP, 09/16/2017. . FINDINGS: The lungs are hyperaerated, similar to prior. Linear scarring in the central left midlung and along t he right minor fissure. The heart is enlarged with panchamber configuration, similar to prior. The ce ntral bronchopulmonary markings are well delineated. No focal consolidative infiltrates seen. No evid ence of pneumothorax. Both hemidiaphragms are well delineated. CONCLUSION: Cardiomegaly. Hyperaerated lungs. No infiltrates seen. Electronically signed by: Yinka Benito MD 10/20/2017 1:40 AM EDT
[2017-10-20 02:01] LABS: Alanine Aminotransferase 14 U/L (10-53); Albumin 2.4 g/dL (3.4-5.0); Anion Gap 9 meq/L (5-15); Aspartate Aminotransferase 22 U/L (15-37); Blood Urea Nitrogen 14 mg/dL (7-18); Carbon Dioxide 26.5 meq/L (21.0-32.0); Chloride 104 meq/L (98-107); Glomerular Filtration Rate 76 mL/min (>89); Glucose,Random 87 mg/dL (74-106); Potassium 3.9 meq/L (3.5-5.1); Sodium 139 meq/L (136-145)
[2017-10-20 02:05] LABS: Alkaline Phosphatase 100 U/L (45-117); Total Protein 7.3 g/dL (6.4-8.2); Troponin I 0.06 ng/mL (0.02-0.05)
[2017-10-20] MEDS ORDERED: Vancomycin Inj 1 GM/200 ML PIGGYBACK IV.SIG ONE (02:45)
[2017-10-20] MEDS ORDERED: Vancomycin Inj 1,000 MG in Sodium Chlor 0.9% Inj 250 ML IV.SIG ONE (04:00)
[2017-10-20] MEDS ORDERED: Vancomycin Consult Pharmacy OTHER PRN (04:25)
[2017-10-20] MEDS ORDERED: Bisacodyl 10 MG Supp RECTAL PRN (04:26)
[2017-10-20] MEDS ORDERED: Acetaminophen 325 MG Tablet PO PRN (04:26)
[2017-10-20] MEDS ORDERED: Ketorolac Inj 30 MG/ML (IVP) Vial IV.PUSH PRN (04:29)
[2017-10-20] MEDS ORDERED: Sod Chloride 0.9% Inj 1,000 ML IV.CONT SCH (04:30)
[2017-10-20] MEDS ORDERED: Labetalol HCl Inj 100 MG/20 ML Vial IV.PUSH ONE (05:45)
--- NOTE | 2017-10-20 08:00 | P.HP ---
History of Present Illness Primary Care Physician: No Primary Care Physician Chief Complaint: SOB History of Present Illness: This is a 57-year-old black female with history IV drug use uses heroin, COPD, tobacco abuse, cardiomegaly, hypertension. Patient presented to the emergency room with complaint of mild shortness of breath for the last 1-2 months that became worse yesterday with exertion. Patient was actually admitted from September 16 - September 18 with COPD exacerbation, possible pneumonia, and cardiomegaly. Was discharged in stable condition. At that time she had an echocardiogram on September 17 showing EF of 55-60%, findings of atrial septal aneurysm and severe tricuspid regurgitation. Patient indicates that yesterday she felt lightheaded, she could not take a deep breath, was wheezing, had chest pain, subjective fever and chills. She had sputum that was green in color. Complains of feeling jittery and believes she is going into withdrawal. Patient is a poor historian, she keeps asking for food and does not want to answer too many questions and keeps going to sleep. She endorsed to emergency room physicianshe thinks she may have lost consciousness briefly. She continues to smoke occasionally. Indicates that she shoots heroin, last use was yesterday. In the emergency room, patient was evaluated. CBC was unremarkable, no leukocytosis. BNP was 468. Troponin 0.06. EKG did not show any significant ST segment elevation, T-wave inversions in V1 to V3. She was given Solu-Medrol, duo nebs. Cultures were done. Given her history of IV drug use and shortness of breath and possible syncope, she was given IV vancomycin. Blood pressure was noted elevated, 194/130. She was given labetalol as well as Lasix 40 mg IV. It is unclear if patient has been compliant with medications she was discharged with. Patient is admitted for further evaluation and treatment. - Diagnosis (1) Acute exacerbation of chronic obstructive airways disease (2) Elevated troponin (3) IVDU (intravenous drug user) (4) Cardiomegaly (5) Severe tricuspid regurgitation by prior echocardiogram (6) Hypertensive urgency Review of Systems other (ROS DIFFICULT TO OBTAIN, PT. FALLING ASLEEP AND WANTS TO EAT. ) PMF - History History Provided By: Medical Record, Pension Consultant / EMT - Medical History Medical History: Medical History (Last Updated 10/20/17 @ 07:59 by LU Kuo) Cardiomegaly IVDU (intravenous drug user) Asthma COPD (chronic obstructive pulmonary disease) GERD (gastroesophageal reflux disease) - Family History Family History: Family History (Last Updated 10/20/17 @ 13:30 by LU Kuo) Other Family history unobtainable - Tobacco History Second Hand Smoke Exposure: Yes Tobacco Use In Past 30 Days: Yes Smoking Status: Current every day smoker Tobacco Type: Cigarettes - Alcohol History How Often Do You Have a Drink Containing Alcohol: Monthly or less - Substance Use History Substance History: Active Abuse (last use of heroine 10/19/2017) - Travel History Recent Travel in the [place] Within the Last 8 Weeks: No Recent Travel Out of the Country Within the Last 8 Weeks: No - Immunization History Tetanus Immunization: Unsure Hx Influenza Vaccine This Season: No Medications and Allergies Active Medications: Active Medications Acetaminophen (Tylenol) 650 mg PO Q4H PRN PRN Reason: Temp > 100.4 Al Hydroxide/Mg Hydroxide (Milk Of Magnesia Liq) 30 ml PO Q12H PRN PRN Reason: Mild Constipation Bisacodyl (Dulcolax Supp) 10 mg RECTAL DAILY PRN PRN Reason: SEVERE CONSITIPATION Sodium Chloride (Ns Inj) 1,000 mls @ 70 mls/hr IV.CONT .[id number] ERIC Piperacillin/Tazobactam/Dextrose (Zosyn 3.375 Gm Premix) 50 mls @ 100 mls/hr IV.SIG Q6H ERIC Ketorolac Tromethamine (Toradol Inj) 30 mg IV.PUSH Q6H PRN PRN Reason: pain 6-10 Stop: 10/25/17 04:28 Lactulose (Lactulose Liq) 30 ml PO DAILY PRN PRN Reason: SEVERE CONSITIPATION Ondansetron HCl (Zofran Inj) 4 mg IV.PUSH Q6H PRN PRN Reason: NAUSEA OR VOMITING Pharmacy Profile Note (Vancomycin Consult Pharmacy) 1 each OTHER UNSCH PRN PRN Reason: Pharmacy to dose Senna/Docusate Sodium (Vianca-Colace) 1 tab PO BID ERIC Sennosides (Senokot) 17.2 mg PO Q12H PRN PRN Reason: Moderate Constipation Allergies Allergy/AdvReac Type Severity Reaction Status Date / Time No Known Allergies Allergy Verified 10/16/17 14:48 Home Medications Medication Instructions Recorded Confirmed Type clonidine HCl 0.1 mg PO TID 10/20/17 10/20/17 History Exam Vital signs: Vital Signs 10/20/17 00:51 10/20/17 00:55 10/20/17 01:00 Temperature 98.7 F Pulse Rate 82 85 88 Respiratory Rate 18 20 Blood Pressure 194/130 H Pulse Oximetry 97 10/20/17 06:04 Temperature Pulse Rate Respiratory Rate Blood Pressure 168/99 H Pulse Oximetry Intake & Output 10/19/17 10/20/17 10/20/17 18:59 06:59 18:59 Intake Total 250 / 250 Balance 250 / 250 Weight 61.235 kg Intake: IV 250 / 250 Vancomycin Inj 1,000 MG In NS 250 / 250 Inj 250 ML @ 250 mls/hr IV.SIG ONCE ONE Rx#:[id number] Narrative: GENERAL: Thin built female, appears older than stated age. SKIN: Warm and dry. HEAD: Atraumatic. Normocephalic. EYES: Pupils equal and round. No scleral icterus. No injection or drainage. ENT: No nasal bleeding or discharge. Mucous membranes pink and moist. Poor dentition. NECK: Trachea midline. No JVD. CARDIOVASCULAR: Regular rate and rhythm. RESPIRATORY: Diffuse expiratory wheezing. GASTROINTESTINAL: Abdomen soft, non-tender, nondistended. Hepatic and splenic margins not palpable. MUSCULOSKELETAL: Extremities without clubbing, cyanosis. Pedal edema, trace. Pedal pulses 2+. No obvious deformities. NEUROLOGICAL: Awakes to voice, oriented 3. Keeps falling asleep. No focal deficits. PSYCHIATRIC: Appropriate mood and affect; insight and judgment normal. Results - Labs CBC & Chem 7: 10/20/17 01:20 10/20/17 01:20 Labs: Laboratory Results - last 24 hr 10/20/17 10/20/17 10/20/17 01:20 01:20 01:20 WBC 4.3 RBC 4.69 Hgb 13.0 Hct 38.3 MCV 81.7 MCH 27.8 MCHC 34.1 RDW 14.5 Plt Count 191 MPV 7.6 Neut % (Auto) 67.5 Lymph % (Auto) 20.0 [place] % (Auto) 11.0 H Eos % (Auto) 1.0 Baso % (Auto) 0.5 Neut # (Auto) 2.9 Lymph # (Auto) 0.9 L [place] # (Auto) 0.5 Eos # (Auto) 0.0 Baso # (Auto) 0.0 WBC Differential . Differential Comment Auto diff final Sodium 139 Potassium 3.9 Chloride 104 Carbon Dioxide 26.5 Anion Gap 9 BUN 14 Creatinine 0.92 Estimated GFR 76 L Random Glucose 87 Calcium 8.0 L Total Bilirubin 0.3 AST 22 ALT 14 Alkaline Phosphatase 100 Troponin I 0.06 H B-Natriuretic Peptide 468 H Total Protein 7.3 Albumin 2.4 L - Imaging Impressions Chest X-Ray 10/20/17 01:06 CONCLUSION: Cardiomegaly. Hyperaerated lungs. No infiltrates seen. Caprini VTE Risk Assessment Caprini VTE Risk Assessment: No/Low Risk (score <= 1) Caprini Risk Assessment Model: Point Value = 1 Point Value = 2 Point Value = 3 Point Value = 5 Age 41-60 Minor surgery BMI > 25 kg/m2 Swollen legs Varicose veins or History of unexplained or recurrent spontaneous Oral contraceptives or hormone replacement Sepsis (< 1 month) Serious lung disease, including pneumonia (< 1 month) Abnormal pulmonary function Acute myocardial infarction Congestive heart failure (< 1 month) History of inflammatory bowel disease Medical patient at bed rest Age 61-74 Arthroscopic surgery Major open surgery (> 45 min) Laparoscopic surgery (> 45 min) Malignancy Confined to bed (> 72 hours) Immobilizing plaster cast Central venous access Age >= 75 History of VTE Family history of VTE Factor V Leiden Prothrombin [id number] Lupus anticoagulant Anticardiolipin antibodies Elevated serum homocysteine Heparin-induced thrombocytopenia Other congenital or acquired thrombophilia Stroke (< 1 month) Elective arthroplasty Hip, pelvis, or leg fracture Acute spinal cord injury (< 1 month) Prophylaxis Regimen: Total Risk Factor Score Risk Level Prophylaxis Regimen 0-1 Low Early ambulation 2 Moderate Order ONE of the following: *Sequential Compression Device (SCD) *Heparin 5000 units SQ BID 3-4 Higher Order ONE of the following medications: *Heparin 5000 units SQ TID *Enoxaparin/Lovenox 40 mg SQ daily (WT < 150 kg, CrCl > 30 mL/min) *Enoxaparin/Lovenox 30 mg SQ daily (WT < 150 kg, CrCl > 10-29 mL/min) *Enoxaparin/Lovenox 30 mg SQ BID (WT < 150 kg, CrCl > 30 mL/min) AND/OR *Sequential Compression Device (SCD) 5 or more Highest Order ONE of the following medications: *Heparin 5000 units SQ TID (Preferred with Epidurals) *Enoxaparin/Lovenox 40 mg SQ daily (WT < 150 kg, CrCl > 30 mL/min) *Enoxaparin/Lovenox 30 mg SQ daily (WT < 150 kg, CrCl > 10-29 mL/min) *Enoxaparin/Lovenox 30 mg SQ BID (WT < 150 kg, CrCl > 30 mL/min) AND *Sequential Compression Device (SCD) Assessment and Plan - Assessment (1) Acute exacerbation of chronic obstructive airways disease Code(s): J44.1 - Chronic obstructive pulmonary disease with (acute) exacerbation Status: Acute (2) Elevated troponin Code(s): R74.8 - Abnormal levels of other serum enzymes Status: Acute (3) IVDU (intravenous drug user) Code(s): F19.90 - Other psychoactive substance use, unspecified, uncomplicated Status: Acute (4) Cardiomegaly Code(s): I51.7 - Cardiomegaly Status: Chronic (5) Severe tricuspid regurgitation by prior echocardiogram Code(s): I07.1 - Rheumatic tricuspid insufficiency Status: Chronic (6) Hypertensive urgency Code(s): I16.0 - Hypertensive urgency Status: Acute - Plan Assessment/Plan 57-year-old female with a history of IV drug use, uses hearing, COPD, smoking, cardiomegaly. Recently admitted for COPD exacerbation, pneumonia and cardiomegaly. Presented to the emergency room with complaint of worsening shortness of breath, lightheaded, possible loss of consciousness. Complaining of chest pain. Complains of feeling jittery, last use of heroin was yesterday. COPD exacerbation, probable bronchitis Continue with supplemental oxygen as needed to keep sats greater than 90 Continue with DuoNeb's We will start Solu-Medrol 40 mg IV every 6. -Continue empiric antibiotics and follow cultures. -Resume Mucinex Reported fever chills with questionable syncope History of IV drug use, rule out endocarditis Echo will be repeated. Hypertensive urgency Presented with initial blood pressure 194/130 Clonidine 0.1 mg p.o. every 6 as needed for systolic greater than 65 and diastolic greater than 90 We will have nurse reconcile medications Cardiomegaly Recent echocardiogram June 17, 2017, EF 55-60%, atrial septal aneurysm, severe TR BNP 468 She does not appear fluid overloaded. -Patient was supposed to be on torsemide at home. We will start Lasix 20 mg p.o. daily -We will discontinue IV fluids Elevated troponin with reported chest pain Possibly secondary to uncontrolled blood pressure Serial cardiac troponin -Controlled blood pressure Current IV drug use, last use of heroin was yesterday Complaining of feeling "jittery" -Monitor withdrawal symptoms CIWA protocol -Patient has been counseled Continue with present treatment, we will follow up on echo report Discussed with RN, patient, CM
[2017-10-20] MEDS: Piperacil/Tazo 3.375 GM Premix 50 ML IV.SIG SCH ×5 (09:15→22:06)
[2017-10-20] MEDS: MethylPREDNISolone Sod Succinate Inj 40 MG/ML Vial IV.PUSH SCH ×3 (09:31→20:58)
[2017-10-20] MEDS: Senna/Docusate Sodium 8.6/50 MG Tablet PO SCH ×2 (09:31→20:58)
[2017-10-20] MEDS ORDERED: Haloperidol Inj 5 MG/ML Ampul IV.PUSH PRN (10:21)
[2017-10-20] MEDS ORDERED: LORazepam 1 MG Tablet PO PRN (10:21)
[2017-10-20 12:28] LABS: Troponin I 0.03 ng/mL (0.02-0.05)
[2017-10-20 13:17] LABS: Troponin I 0.03 ng/mL (0.02-0.05)
--- NOTE | 2017-10-20 14:35 | ECG ---
Date Performed: 10/20/2017 Time Performed: 02:53:10 PTAGE: 57 years EKG: Sinus rhythm POSSIBLE RIGHT ATRIAL ENLARGEMENT POSSIBLE LEFT ATRIAL ENLARGEMENT RIGHT VENTRICULAR HYPERTROPHY AND ST-T CHANGE LVH ABNORMAL ECG Since the PREVIOUS TRACING , no significant change noted PREVIOUS TRACING DOCTOR: Sandra Mercedes Interpretating Date/Time 10/20/2017 14:33:45
[2017-10-20] MEDS: Furosemide 20 MG Tablet PO SCH (14:50)
[2017-10-20] MEDS: amLODIPine 10 MG Tablet PO SCH (16:27)
[2017-10-20] MEDS ORDERED: Vancomycin Inj 1,000 MG in Sodium Chlor 0.9% Inj 250 ML IV.SIG SCH (22:00)
[2017-10-20] MEDS ORDERED: hydrALAZINE 25 MG Tablet PO ONE (22:23)
[2017-10-21] MEDS: MethylPREDNISolone Sod Succinate Inj 40 MG/ML Vial IV.PUSH SCH (03:56)
[2017-10-21] MEDS: Piperacil/Tazo 3.375 GM Premix 50 ML IV.SIG SCH ×2 (04:13→11:46)
[2017-10-21] MEDS: amLODIPine 10 MG Tablet PO SCH (08:11)
[2017-10-21] MEDS: Furosemide 20 MG Tablet PO SCH (08:11)
[2017-10-21] MEDS: Senna/Docusate Sodium 8.6/50 MG Tablet PO SCH (08:11)
--- NOTE | 2017-10-21 09:57 | P.PN ---
Subjective Interval history: follow up for sob: pt. more awake, oriented x 3. No sob, no cp, less anxious. No fever overnight. BP uncontrolled yesterday, improved today. States she has not been taking meds at home. Wants to go home. Physical Exam Vital signs: Vital Signs 10/20/17 12:00 10/20/17 13:01 10/20/17 13:31 Temperature 98.1 F Pulse Rate 92 H Respiratory Rate 20 32 H Blood Pressure 195/90 H Pulse Oximetry 95 10/20/17 15:17 10/20/17 15:45 10/20/17 16:54 Temperature Pulse Rate 93 H Respiratory Rate Blood Pressure 218/131 H 185/95 H Pulse Oximetry 93 L 10/20/17 19:06 10/20/17 20:00 10/20/17 23:10 Temperature 98.0 F 97.8 F Pulse Rate 87 95 H 87 Respiratory Rate 20 16 20 Blood Pressure 187/121 H 193/136 H Pulse Oximetry 97 98 10/20/17 23:52 10/21/17 01:45 10/21/17 03:46 Temperature 98.0 F 97.7 F Pulse Rate 102 H 100 H 99 H Respiratory Rate 21 20 Blood Pressure 185/120 H 162/108 H Pulse Oximetry 94 L 10/21/17 04:02 10/21/17 09:22 Temperature 96.9 F L Pulse Rate 97 H 89 Respiratory Rate 16 Blood Pressure 161/117 H Pulse Oximetry 100 Intake & Output 10/20/17 10/21/17 10/21/17 18:59 06:59 18:59 Intake Total 1250 / 1250 1055 / 1055 250 / 250 Output Total 1500 / 1500 Balance -250 / -250 1055 / 1055 250 / 250 Weight 17.917 kg Intake: IV 750 / 750 650 / 650 250 / 250 NS Inj 1,000 ML @ 50 mls/hr IV. 400 / 400 CONT .Q20H ERIC Rx#:[id number] Zosyn 3.375 GM Premix 50 ML @ 100 / 100 50 / 50 100 mls/hr IV.SIG Q6H ERIC Rx#: [id number] Vancomycin Inj 1,000 MG In NS 250 / 250 0 / 0 250 / 250 Inj 250 ML @ 250 mls/hr IV.SIG Q24H ERIC Rx#:[id number] Oral 500 / 500 405 / 405 Output: Urine 1500 / 1500 Other: # Voids 4 Narrative: GENERAL: Thin built female, appears older than stated age. SKIN: Warm and dry. HEAD: Atraumatic. Normocephalic. EYES: Pupils equal and round. No scleral icterus. No injection or drainage. ENT: No nasal bleeding or discharge. Mucous membranes pink and moist. Poor dentition. NECK: Trachea midline. No JVD. CARDIOVASCULAR: Regular rate and rhythm. RESPIRATORY:Lungs clear, no adventitious breath sounds. GASTROINTESTINAL: Abdomen soft, non-tender, nondistended. Hepatic and splenic margins not palpable. MUSCULOSKELETAL: Extremities without clubbing, cyanosis. Pedal edema, trace. Pedal pulses 2+. No obvious deformities. NEUROLOGICAL: Awakes to voice, oriented 3. No focal deficits. PSYCHIATRIC: Less anxious. Results - Labs CBC & Chem 7: 10/20/17 01:20 10/20/17 01:20 Laboratory Results - last 24 hr 10/20/17 10/20/17 11:29 12:37 Total Creatine Kinase 83 81 Troponin I 0.03 0.03 Assessment and Plan - Assessment (1) Acute exacerbation of chronic obstructive airways disease Code(s): J44.1 - Chronic obstructive pulmonary disease with (acute) exacerbation Status: Acute (2) Elevated troponin Code(s): R74.8 - Abnormal levels of other serum enzymes Status: Acute (3) IVDU (intravenous drug user) Code(s): F19.90 - Other psychoactive substance use, unspecified, uncomplicated Status: Acute (4) Cardiomegaly Code(s): I51.7 - Cardiomegaly Status: Chronic (5) Severe tricuspid regurgitation by prior echocardiogram Code(s): I07.1 - Rheumatic tricuspid insufficiency Status: Chronic (6) Hypertensive urgency Code(s): I16.0 - Hypertensive urgency Status: Acute - Plan Assessment/Plan 57-year-old female with a history of IV drug use, uses hearing, COPD, smoking, cardiomegaly. Recently admitted for COPD exacerbation, pneumonia and cardiomegaly. Presented to the emergency room with complaint of worsening shortness of breath, lightheaded, possible loss of consciousness. Complaining of chest pain. Complains of feeling jittery, last use of heroin was yesterday. COPD exacerbation, probable bronchitis Improved today, no wheezing, on RA Continue with supplemental oxygen as needed to keep sats greater than 90 Continue with DuoNeb's dc IV steroids, change to Prednisone 20 mg po daily -Continue empiric antibiotics and follow cultures, so far negative -continue Mucinex Reported fever chills with questionable syncope History of IV drug use, rule out endocarditis Echo will be repeated, pending. Hypertensive urgency Presented with initial blood pressure 194/130 pt. has been noncompliant at home BP better today. Clonidine 0.1 mg p.o. every 6 as needed for systolic greater than 65 and diastolic greater than 90 Continue home meds, resumed Norvasc and Lasix -add Coreg and Lisinopril Cardiomegaly Recent echocardiogram June 17, 2017, EF 55-60%, atrial septal aneurysm, severe TR BNP 468 She does not appear fluid overloaded. -Patient was supposed to be on torsemide at home. Continue Lasix 20 mg p.o. daily Elevated troponin with reported chest pain Possibly secondary to uncontrolled blood pressure Serial cardiac troponin, negative. -Control blood pressure Current IV drug use, last use of heroin was yesterday Complaining of feeling "jittery" Improved today. -Monitor withdrawal symptoms CIWA protocol -Patient has been counseled, patient states she is going to try to quit. Continue with present treatment, we will follow up on echo report Possible discharge later today after echo done. Discussed with RN, patient, TAMMY
[2017-10-21] MEDS ORDERED: Carvedilol 6.25 MG Tablet PO SCH (10:45)
[2017-10-21] MEDS ORDERED: Lisinopril 5 MG Tablet PO SCH (10:45)
[2017-10-21 14:17] LABS: Calcium 8.8 mg/dL (8.5-10.1); Carbon Dioxide 29.4 meq/L (21.0-32.0)
--- NOTE | 2017-10-21 14:28 | P.AMA ---
AMA Note - AMA Note AMA Statement: Patient Myla Sherwood has decided to leave the hospital against medical advice. This patient has the capacity to refuse care and understands the risks of leaving, including permanent disability and/or , and has had an opportunity to ask questions about his/her condition. The patient has been informed that he/she may return for care at any time, and follow up has been arranged/advised. - AMA Note Discharge Disposition: Left Against Medical Advice Patient Condition on Discharge: Good
[2017-10-22] MEDS ORDERED: predniSONE 20 MG Tablet PO SCH (09:00)
--- NOTE | 2017-10-22 13:09 | ECG ---
Date Performed: 10/20/2017 Time Performed: 16:43:55 PTAGE: 57 years EKG: Sinus rhythm RIGHT ATRIAL ENLARGEMENT LEFT ATRIAL ENLARGEMENT MARKED RIGHT AXIS DEVIATION ST DEVIATION AND MODERA TE T-WAVE ABNORMALITY, CONSIDER ANTERIOR ISCHEMIA ABNORMAL ECG PREVIOUS TRACING : 10/20/2017 02.53 Since the previous tracing, no significant change noted DOCTOR: Milton Hoff Interpretating Date/Time 10/22/2017 13:07:54
== END 2017-10-21 14:48 | disposition left against medical advice (07) ==
LOC: NEPE 00:41 → NEDA 03:00 → INTOOBSV 03:00 → NEPFCDU 08:02
PROVIDERS: ADMIT Hospitalist; ATTEND Hospitalist

== ENCOUNTER 2017-11-18 15:45 | Inpatient (IN) ==
[2017-11-18 16:33] LABS: Baso % (Auto) 0.5 % (0.0-2.0); Eos % (Auto) 0.9 % (0.0-4.0); Hematocrit 39.2 % (35.0-46.0); Hemoglobin 13.4 gm/dL (11.6-15.3); Lymph # (Auto) 0.9 th/mm3 (1.0-4.8); Lymph % (Auto) 17.1 % (9.0-44.0); Mean Corpuscular HGB Conc 34.2 % (32.0-36.0); Mean Corpuscular Hemoglobin 27.9 pg (27.0-34.0); Mean Corpuscular Volume 81.7 fL (80.0-100.0); Mean Platelet Volume 8.5 fL (7.0-11.0); Mono # (Auto) 0.4 th/mm3 (0.0-0.9); Mono % (Auto) 7.5 % (0.0-8.0); Neut # (Auto) 3.8 th/mm3 (1.8-7.7); Platelet Count 196 th/mm3 (150-450); Red Cell Distribution Width 15.1 % (11.6-17.2); White Blood Count 5.1 th/mm3 (4.0-11.0)
[2017-11-18 16:51] LABS: Alanine Aminotransferase 20 U/L (10-53)
--- NOTE | 2017-11-18 16:51 | XR ---
EXAM DATE: 11/18/2017 4:20 PM EDT AGE/SEX: 57 years / Female INDICATIONS: Shortness of breath. CLINICAL DATA: This is the patient's initial encounter. Patient reports that signs and symptoms have been present for 1 day and indicates a pain score of 0/10. MEDICAL/SURGICAL HISTORY: Chronic obstructive pulmonary disease. None. [place]PAR[place]: [facility] [place]/2017. . FINDINGS: A single AP view of the chest demonstrates the lungs to be symmetrically aerated without evidence of mass, infiltrate or effusion. There is stable scarring in both lung bases. No new or significant galindo ges are demonstrated. The heart size is enlarged but stable.. Osseous structures are intact and stab le. No significant changes compared to the prior study. CONCLUSION: 1. There are stable linear areas of scarring in both lower lungs. 2. No new or acute pulmonary infiltrates. 3. Stable cardiomegaly. Electronically signed by: Brad Wells MD 11/18/2017 4:49 PM EDT
[2017-11-18 16:55] LABS: Alkaline Phosphatase 118 U/L (45-117); Total Protein 7.9 g/dL (6.4-8.2); Troponin I 0.07 ng/mL (0.02-0.05)
[2017-11-18] MEDS ORDERED: MethylPREDNISolone Sod Succinate Inj 125 MG/2 ML Vial IV.PUSH ONE (16:55)
[2017-11-18 16:56] LABS: Albumin 2.7 g/dL (3.4-5.0); Anion Gap 8 meq/L (5-15); Aspartate Aminotransferase 35 U/L (15-37); Blood Urea Nitrogen 15 mg/dL (7-18); Calcium 8.5 mg/dL (8.5-10.1); Carbon Dioxide 28.7 meq/L (21.0-32.0); Chloride 99 meq/L (98-107); Glomerular Filtration Rate 62 mL/min (>89); Glucose,Random 86 mg/dL (74-106); Potassium 3.8 meq/L (3.5-5.1); Sodium 136 meq/L (136-145)
--- NOTE | 2017-11-18 17:22 | ED ---
HPI General Chief Complaint: Shortness of Breath/Dyspnea Stated Complaint: Shortness of breath Time Seen by Provider: 11/18/17 16:16 History of Present Illness 52-year-old female presenting to the ED with complaints of shortness of breath. She has a past medical history significant for but not limited to COPD and hypertension. She has a 40+ pack year history. She recently moved to the area from [place]. She has not been on her medications for COPD or blood pressure for the last 1-2 months. She has many questions about a toothache as well as where to be established with a primary care physician in the area. Shortness of breath began 3 days ago. She states that she had been sick the week prior. In the last 24 hours her shortness of breath has worsened so she called the ambulance to take her to the ED. She endorses shortness of breath at rest, dyspnea with exertion, and increased swelling in her lower extremities. She denies fever, sore throat, cough, change in sputum, chest pain , or wheezing. She has responded to breathing treatments in the past. Related Data Home Medications Medication Instructions Recorded Confirmed clonidine HCl 0.1 mg PO TID 10/20/17 11/18/17 Previous Rx's Medication Instructions Recorded oxycodone-acetaminophen 1 tab PO Q6H PRN #12 tab 09/17/17 amlodipine 5 mg PO DAILY 30 Days #15 tab 10/20/17 budesonide-formoterol [Symbicort] 2 puff INH BID 30 Days g 10/20/17 potassium chloride [K-Tab] 10 meq PO DAILY #30 tab 10/20/17 carvedilol [Coreg] 6.25 mg PO BID 30 Days #60 tab 10/21/17 lisinopril 5 mg PO DAILY 30 Days #30 tab 10/21/17 torsemide 10 mg PO DAILY #30 tab 10/21/17 Allergies Allergy/AdvReac Type Severity Reaction Status Date / Time acetaminophen [From Tylenol] AdvReac Itching Verified 11/18/17 15:55 ibuprofen AdvReac Itching Verified 11/18/17 15:55 Review of Systems ROS: all other systems reviewed are negative [facility] Family History Family History Other Family history unobtainable Social History Social History Substance History: Active Abuse Second Hand Smoke Exposure: Yes Smoking Status: Current every day smoker Tobacco Type: Cigarettes and Cigars How Often Do You Have a Drink Containing Alcohol: Monthly or less Recent Travel in [facility] within the Last 8 Weeks: No Recent Out of Country Travel within the Last 8 Weeks: No Immunization History Tetanus Immunization: <5 Years Exam Narrative Exam Narrative: GENERAL: A 57-year-old female pleasant well-nourished well- developed mildly dyspneic speaking short sentences SKIN: Focused skin assessment warm/dry. HEAD: Atraumatic. Normocephalic. EYES: Pupils equal and round. No scleral icterus. No injection or drainage. ENT: No nasal bleeding or discharge. Mucous membranes pink and moist. NECK: Trachea midline. No JVD. CARDIOVASCULAR: Tachycardia. Regular rhythm. RESPIRATORY: Wheezing present bilaterally. Respiratory rate about 26 breaths a minute. GASTROINTESTINAL: Abdomen soft, non-tender, nondistended. Hepatic and splenic margins not palpable. MUSCULOSKELETAL: No obvious deformities. No clubbing. No cyanosis. 2+ pitting edema bilateral lower extremities to the knees. NEUROLOGICAL: Awake and alert. No obvious cranial nerve deficits. Motor grossly within normal limits. Normal speech. PSYCHIATRIC: Appropriate mood and affect; insight and judgment normal. Course Initial Documented Vital Signs Temperature 98.2 F 11/18/17 15:56 Pulse Rate 93 H 11/18/17 15:56 Respiratory Rate 24 11/18/17 15:56 Blood Pressure 197/139 H 11/18/17 15:56 Pulse Oximetry 92 L 11/18/17 15:56 Last Documented Vital Signs Temperature 98.0 F 11/19/17 04:50 Pulse Rate 73 11/19/17 04:50 Respiratory Rate 20 11/19/17 04:50 Blood Pressure 191/111 H 11/19/17 04:50 Pulse Oximetry 99 11/19/17 04:50 Critical Care Time Critical Care Time: Yes Total Critical Care Time: 31 Attestation: Aggregate critical care time was 30 minutes. Time to perform other separately billable procedures was not included in the critical care time. My time did not include minutes spent treating any other patients simultaneously or on activities that did not directly contribute to the patient's treatment. The services I provided to this patient were to treat and/or prevent clinically significant deterioration that could result in: Hypoxia, hypoxic organ injury I provided critical care services requiring my management, as noted below: Chart data review, documentation time, medication orders and management, vital sign assessments/reviewing monitor data, ordering and reviewing lab tests, ordering and interpreting/reviewing x-rays and diagnostic studies, care of the patient and discussion of the patient with the admitting physicians. Medical Decision Making MDM Narrative Medical decision making narrative: The patient attempted to ambulate here in the ED and upon return to bed had an O2 sat at 86%. Heart rate was about 100. Patient will be admitted for COPD exacerbation with hypoxia. Case discussed with Dr Mohamud for hospital service. patient has had multiple elevated troponins in the past and this scenario considered a non-specific marker. Medical Screen Exam Complete: Yes Emergency Medical Condition: Yes Differential Diagnosis Differential Diagnosis: 1. COPD exacerbation versus URI versus CHF exacerbation 2. Hypertension, untreated 3. Periapical dental abscess Lab Data Lab results reviewed: Yes I reviewed the patient's lab results. Result diagrams: 11/18/17 16:22 11/18/17 16:22 Lab Results 11/18/17 11/18/17 11/18/17 Range/Units 16:22 16:22 18:20 WBC 5.1 (4.0-11.0) th/mm3 RBC 4.80 (4.00-5.30) mil/mm3 Hgb 13.4 (11.6-15.3) gm/dL Hct 39.2 (35.0-46.0) % MCV 81.7 (80.0-100.0) fL MCH 27.9 (27.0-34.0) pg MCHC 34.2 (32.0-36.0) % RDW 15.1 (11.6-17.2) % Plt Count 196 (150-450) th/mm3 MPV 8.5 (7.0-11.0) fL Neut % (Auto) 74.0 H (16.0-70.0) % Lymph % (Auto) 17.1 (9.0-44.0) % [place] % (Auto) 7.5 (0.0-8.0) % Eos % (Auto) 0.9 (0.0-4.0) % Baso % (Auto) 0.5 (0.0-2.0) % Neut # (Auto) 3.8 (1.8-7.7) th/mm3 Lymph # (Auto) 0.9 L (1.0-4.8) th/mm3 [place] # (Auto) 0.4 (0.0-0.9) th/mm3 Eos # (Auto) 0.0 (0.0-0.4) th/mm3 Baso # (Auto) 0.0 (0.0-0.2) th/mm3 WBC Differential . Differential Comment Auto diff final Sodium 136 (136-145) meq/L Potassium 3.8 (3.5-5.1) meq/L Chloride 99 (98-107) meq/L Carbon Dioxide 28.7 (21.0-32.0) meq/L Anion Gap 8 (5-15) meq/L BUN 15 (7-18) mg/dL Creatinine 1.10 H (0.50-1.00) mg/dL Estimated GFR 62 L (>89) mL/min Random Glucose 86 (74-106) mg/dL Calcium 8.5 (8.5-10.1) mg/dL Total Bilirubin 0.3 (0.2-1.0) mg/dL AST 35 (15-37) U/L ALT 20 (10-53) U/L Alkaline Phosphatase 118 H (45-117) U/L Troponin I 0.07 H (0.02-0.05) ng/mL Total Protein 7.9 (6.4-8.2) g/dL Albumin 2.7 L (3.4-5.0) g/dL Urine Opiates Screen Pos H (Neg) Ur Barbiturates Screen Neg (Neg) Ur Amphetamines Screen Pos H (Neg) U Benzodiazepines Scrn Neg (Neg) Urine Cocaine Screen Neg (Neg) U Cannabinoids Screen Pos H (Neg) 11/18/17 Range/Units 23:35 WBC (4.0-11.0) th/mm3 RBC (4.00-5.30) mil/mm3 Hgb (11.6-15.3) gm/dL Hct (35.0-46.0) % MCV (80.0-100.0) fL MCH (27.0-34.0) pg MCHC (32.0-36.0) % RDW (11.6-17.2) % Plt Count (150-450) th/mm3 MPV (7.0-11.0) fL Neut % (Auto) (16.0-70.0) % Lymph % (Auto) (9.0-44.0) % [place] % (Auto) (0.0-8.0) % Eos % (Auto) (0.0-4.0) % Baso % (Auto) (0.0-2.0) % Neut # (Auto) (1.8-7.7) th/mm3 Lymph # (Auto) (1.0-4.8) th/mm3 [place] # (Auto) (0.0-0.9) th/mm3 Eos # (Auto) (0.0-0.4) th/mm3 Baso # (Auto) (0.0-0.2) th/mm3 WBC Differential Differential Comment Sodium (136-145) meq/L Potassium (3.5-5.1) meq/L Chloride (98-107) meq/L Carbon Dioxide (21.0-32.0) meq/L Anion Gap (5-15) meq/L BUN (7-18) mg/dL Creatinine (0.50-1.00) mg/dL Estimated GFR (>89) mL/min Random Glucose (74-106) mg/dL Calcium (8.5-10.1) mg/dL Total Bilirubin (0.2-1.0) mg/dL AST (15-37) U/L ALT (10-53) U/L Alkaline Phosphatase (45-117) U/L Troponin I 0.05 (0.02-0.05) ng/mL Total Protein (6.4-8.2) g/dL Albumin (3.4-5.0) g/dL Urine Opiates Screen (Neg) Ur Barbiturates Screen (Neg) Ur Amphetamines Screen (Neg) U Benzodiazepines Scrn (Neg) Urine Cocaine Screen (Neg) U Cannabinoids Screen (Neg) Imaging Data Attestation: I personally reviewed and interpreted this imaging study as follows : Radiologist's impression: Chest X-Ray 11/18/17 16:20 CONCLUSION: 1. There are stable linear areas of scarring in both lower lungs. 2. No new or acute pulmonary infiltrates. 3. Stable cardiomegaly. Discharge Plan Discharge Disposition Patient Disposition: 30 Still Patient Physicians Team ED Provider: Anjum Hercules Primary Care Provider: Primary Care Gretchen Rucker Attending Provider: Hailey Germain Other Providers: [facility],Insurance Discharge Interventions Interventions: ED Discharge Assessment Last Done: 11/18/17 21:20 Vital Signs Last Done: 11/18/17 19:15 Status ED Status: Left Department Discharge Information Discharge Date/Time: 11/18/17 21:20
[2017-11-18] MEDS ORDERED: Lisinopril 5 MG Tablet PO ONE (18:45)
[2017-11-18] MEDS ORDERED: amLODIPine 5 MG Tablet PO ONE (18:46)
[2017-11-18 18:55] LABS: Amphetamine Screen,Urine Pos (Neg); Barbiturate Screen,Urine Neg (Neg); Cannabinoid Screen,Urine Pos (Neg); Cocaine Screen,Urine Neg (Neg)
[2017-11-18 18:58] LABS: Opiate Screen,Urine Pos (Neg)
[2017-11-18] MEDS ORDERED: Bisacodyl 10 MG Supp RECTAL PRN (19:14)
--- NOTE | 2017-11-18 19:41 | P.HPIM ---
History of Present Illness Primary Care Physician: No Primary Care Physician History of Present Illness: This is a 57-year-old female with a PMH of HTN, COPD, IVDU w/ Heroin and Tobacco Abuse who was brought to the ER by EMS for c/o SOB. Recent admit for similar complaints, found to have COPD Exacerbation w/ mildly elevated trop of 0.06, however pt LEFT AMA on 10/21/17. Returns now w/ recurrent c/o SOB, states at rest and w/ exertion. Denies fever, chills, cough or chest pain. On arrival, BP 202/126, HR 94, O2 sat 84% on RA, Afebrile. CBC unremarkable. Chemistry essentially unremarkable. Creatinine 1.10, previously 1.08. Troponin 0 0.07. Urine Drug Screen positive for Amphetamines, Opiates and Cannabis. CXR with linear scarring both lungs, no acute infiltrates. S/p Solu- Medrol and DuoNeb in ER w/ some improvement. - Diagnosis (1) COPD (chronic obstructive pulmonary disease) (2) Hypoxia (3) Elevated troponin (4) HTN (hypertension) (5) Renal insufficiency (6) Tobacco abuse Inpatient Certification: I certify that the inpatient services were ordered in accordance with Medicare regulations governing the order. This includes certification that hospital inpatient services are reasonable and necessary and in the case of services not specified as inpatient-only under 42 CFR 419.22(n), that they are appropriately provided as inpatient services in accordance to with the 2-midnight benchmark under 43 CFR 412.3(e) Estimated Total Length of Stay (Days): 2 Plans for Post Hospital Care: Not yet determined Review of Systems PAST FAMILY HISTORY: Reviewed. 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 - Medical History Medical History: Medical History (Last Reviewed 11/18/17 @ 15:53 by Chinyere Riggs) Asthma COPD (chronic obstructive pulmonary disease) Cardiomegaly GERD (gastroesophageal reflux disease) IVDU (intravenous drug user) - Family History Family History: Family History (Last Updated 10/20/17 @ 13:30 by LU Kuo) Other Family history unobtainable - Tobacco History Second Hand Smoke Exposure: No Tobacco Use In Past 30 Days: Yes Smoking Status: Current every day smoker Tobacco Type: Cigarettes - Alcohol History How Often Do You Have a Drink Containing Alcohol: Monthly or less - Substance Use History Substance History: Past History - Travel History Recent Travel in the [place] Within the Last 8 Weeks: No Recent Travel Out of the Country Within the Last 8 Weeks: No - Immunization History Tetanus Immunization: <5 Years Medications and Allergies Active Medications: Active Medications Al Hydroxide/Mg Hydroxide (Milk Of Magnesia Liq) 30 ml PO Q12H PRN PRN Reason: Mild Constipation Albuterol (Albuterol Neb (Prn)) 2.5 mg NEB Q15M PRN PRN Reason: WHEEZING Last Admin: 11/18/17 17:40 Dose: 2.5 mg Albuterol (Duoneb Neb (Prn)) 1 ampul NEB Q2HR NEB PRN PRN Reason: SOB/WHEEZING Albuterol (Duoneb Neb (Arnie)) 1 ampul NEB Q4HR WHILE AWAKE NEB ARNIE Last Admin: 11/18/17 19:31 Dose: 1 ampul Bisacodyl (Dulcolax Supp) 10 mg RECTAL DAILY PRN PRN Reason: SEVERE CONSITIPATION Budesonide/Formoterol Fumarate (Symbicort 160/4.5 Mcg Inh) 2 puff INH BID ARNIE Guaifenesin (Mucinex Er) 600 mg PO BID ARNIE Lactulose (Lactulose Liq) 30 ml PO DAILY PRN PRN Reason: SEVERE CONSITIPATION Methylprednisolone Sodium Succinate (Solumedrol Inj) 40 mg IV.PUSH Q6H ARNIE Ondansetron HCl (Zofran Inj) 4 mg IV.PUSH Q6H PRN PRN Reason: NAUSEA OR VOMITING Senna/Docusate Sodium (Vianca-Colace) 1 tab PO BID [facility] Sennosides (Senokot) 17.2 mg PO Q12H PRN PRN Reason: Moderate Constipation Allergies Allergy/AdvReac Type Severity Reaction Status Date / Time acetaminophen [From Tylenol] AdvReac Itching Verified 11/18/17 15:55 ibuprofen AdvReac Itching Verified 11/18/17 15:55 Home Medications Medication Instructions Recorded Confirmed Type clonidine HCl 0.1 mg PO TID 10/20/17 11/18/17 History Exam Vital signs: Vital Signs 11/18/17 15:56 11/18/17 16:30 11/18/17 17:51 Temperature 98.2 F Pulse Rate 93 H 93 H Respiratory Rate 24 15 Blood Pressure 197/139 H Pulse Oximetry 92 L 92 L 11/18/17 17:52 11/18/17 18:18 11/18/17 18:34 Temperature Pulse Rate 93 H 94 H Respiratory Rate 15 24 Blood Pressure 202/126 H Pulse Oximetry 84 L 93 L 11/18/17 19:15 11/18/17 19:31 Temperature Pulse Rate 93 H 91 H Respiratory Rate 16 16 Blood Pressure 172/107 H Pulse Oximetry 94 L 95 Intake & Output 11/18/17 11/18/17 11/19/17 06:59 18:59 06:59 Weight 40.823 kg Narrative: PE: GENERAL: Chronically ill-appearing middle-aged black female in no acute distress. SKIN: Focused skin assessment warm and dry. HEENT: PERRLA, EOMI. No scleral icterus or conjunctival pallor. No lid lag or facial droop. CARDIOVASCULAR: Regular rate and rhythm. No obvious murmurs to auscultation. No chest tenderness to palpation. RESPIRATORY: No obvious rhonchi. Occasional wheezing. Clear to auscultation. Breath sounds equal bilaterally. GASTROINTESTINAL: Abdomen soft, non-tender, nondistended. BS normal. MUSCULOSKELETAL: Extremities without clubbing, cyanosis. +2 edema. No obvious deformities. NEUROLOGICAL: Awake, alert and oriented x4. No focal neurologic deficits. Moving both upper and lower extremities spontaneously. PSYCHIATRIC: Appropriate mood and affect. Insight and judgment normal. Results - Labs CBC & Chem 7: 11/18/17 16:22 11/18/17 16:22 Labs: Short CBC 11/18/17 Range/Units 16:22 WBC 5.1 (4.0-11.0) th/mm3 Hgb 13.4 (11.6-15.3) gm/dL Hct 39.2 (35.0-46.0) % Plt Count 196 (150-450) th/mm3 BMP 11/18/17 16:22 Sodium 136 Potassium 3.8 Chloride 99 Carbon Dioxide 28.7 BUN 15 Creatinine 1.10 H Calcium 8.5 Cardiac Enzymes 11/18/17 Range/Units 16:22 Troponin I 0.07 H (0.02-0.05) ng/mL Liver Function 11/18/17 Range/Units 16:22 Total Bilirubin 0.3 (0.2-1.0) mg/dL AST 35 (15-37) U/L ALT 20 (10-53) U/L Alkaline Phosphatase 118 H (45-117) U/L Albumin 2.7 L (3.4-5.0) g/dL - Imaging Impressions Chest X-Ray 11/18/17 16:20 CONCLUSION: 1. There are stable linear areas of scarring in both lower lungs. 2. No new or acute pulmonary infiltrates. 3. Stable cardiomegaly. Caprini VTE Risk Assessment Caprini VTE Risk Assessment: No/Low Risk (score <= 1) Caprini Risk Assessment Model: Point Value = 1 Point Value = 2 Point Value = 3 Point Value = 5 Age 41-60 Minor surgery BMI > 25 kg/m2 Swollen legs Varicose veins or History of unexplained or recurrent spontaneous Oral contraceptives or hormone replacement Sepsis (< 1 month) Serious lung disease, including pneumonia (< 1 month) Abnormal pulmonary function Acute myocardial infarction Congestive heart failure (< 1 month) History of inflammatory bowel disease Medical patient at bed rest Age 61-74 Arthroscopic surgery Major open surgery (> 45 min) Laparoscopic surgery (> 45 min) Malignancy Confined to bed (> 72 hours) Immobilizing plaster cast Central venous access Age >= 75 History of VTE Family history of VTE Factor V Leiden Prothrombin [id number] Lupus anticoagulant Anticardiolipin antibodies Elevated serum homocysteine Heparin-induced thrombocytopenia Other congenital or acquired thrombophilia Stroke (< 1 month) Elective arthroplasty Hip, pelvis, or leg fracture Acute spinal cord injury (< 1 month) Prophylaxis Regimen: Total Risk Factor Score Risk Level Prophylaxis Regimen 0-1 Low Early ambulation 2 Moderate Order ONE of the following: *Sequential Compression Device (SCD) *Heparin 5000 units SQ BID 3-4 Higher Order ONE of the following medications: *Heparin 5000 units SQ TID *Enoxaparin/Lovenox 40 mg SQ daily (WT < 150 kg, CrCl > 30 mL/min) *Enoxaparin/Lovenox 30 mg SQ daily (WT < 150 kg, CrCl > 10-29 mL/min) *Enoxaparin/Lovenox 30 mg SQ BID (WT < 150 kg, CrCl > 30 mL/min) AND/OR *Sequential Compression Device (SCD) 5 or more Highest Order ONE of the following medications: *Heparin 5000 units SQ TID (Preferred with Epidurals) *Enoxaparin/Lovenox 40 mg SQ daily (WT < 150 kg, CrCl > 30 mL/min) *Enoxaparin/Lovenox 30 mg SQ daily (WT < 150 kg, CrCl > 10-29 mL/min) *Enoxaparin/Lovenox 30 mg SQ BID (WT < 150 kg, CrCl > 30 mL/min) AND *Sequential Compression Device (SCD) Assessment and Plan - Assessment (1) COPD (chronic obstructive pulmonary disease) Code(s): J44.9 - Chronic obstructive pulmonary disease, unspecified Status: Acute (2) Hypoxia Code(s): R09.02 - Hypoxemia Status: Acute (3) Elevated troponin Code(s): R74.8 - Abnormal levels of other serum enzymes Status: Acute (4) HTN (hypertension) Code(s): I10 - Essential (primary) hypertension Status: Acute (5) Renal insufficiency Code(s): N28.9 - Disorder of kidney and ureter, unspecified Status: Acute (6) Tobacco abuse Code(s): Z72.0 - Tobacco use Status: Acute - Plan A/P: 1. COPD: Chronic Respiratory Failure w/ Acute Exacerbation. Severe. Continue Solu-Medrol, DuoNeb q4h and q2h prn, Symbicort bid, Mucinex. CXR w/ no acute findings, images reviewed. 2. Hypoxia: O2 sat 84% on RA upon arrival, currently 95% on 2L NC, monitor O2. 3. HTN: Uncontrolled. BP 202/126, HR 94, suspect non-compliance w/ medications, resume home meds, monitor BP, antihypertensives as needed for BP > 180 4. Elevated Trop: Trop 0.07, likely due to demand, no c/o chest pain, no EKG changes, will place on telemetry, check serial cardiac enzymes for trend. NTG prn. 5. Renal Insufficiency: Creatinine 1.10, previously 1.08 on 10/21/17, monitor I/ O, repeat labs in am. 6. Tobacco Abuse: Pt counselled, no NicoDerm to avoid vasoconstriction, Ativan prn. 7. DVT Prophylaxis: SCD/Teds 8. Social work for d/c planning as needed 9. Case discussed w/ ER physician at length, labs/records/imaging reviewed by me
[2017-11-18] MEDS: MethylPREDNISolone Sod Succinate Inj 40 MG/ML Vial IV.PUSH SCH (20:36)
[2017-11-18] MEDS: guaiFENesin 600 MG ER Tablet PO SCH (20:37)
[2017-11-18] MEDS: Carvedilol 6.25 MG Tablet PO SCH (20:37)
[2017-11-18] MEDS: Senna/Docusate Sodium 8.6/50 MG Tablet PO SCH (20:37)
[2017-11-18] MEDS: Budesonide-Formoterol 160/4.5 MCG 6 GM Inhaler INH SCH (22:36)
[2017-11-19] MEDS: MethylPREDNISolone Sod Succinate Inj 40 MG/ML Vial IV.PUSH SCH ×4 (02:43→19:50)
[2017-11-19] MEDS ORDERED: amLODIPine 5 MG Tablet PO SCH (09:00)
[2017-11-19] MEDS ORDERED: Lisinopril 5 MG Tablet PO SCH (09:00)
--- NOTE | 2017-11-19 09:38 | P.PNIM ---
Subjective Interval history: f/u; COPD exacerbation in no acute distress. says that her sob is improving. no cough or sputum production. afebrile. BP trend noted. Physical Exam Vital signs: Vital Signs 11/18/17 15:56 11/18/17 16:30 11/18/17 17:51 Temperature 98.2 F Pulse Rate 93 H 93 H Respiratory Rate 24 15 Blood Pressure 197/139 H Pulse Oximetry 92 L 92 L 11/18/17 17:52 11/18/17 18:18 11/18/17 18:34 Temperature Pulse Rate 93 H 94 H Respiratory Rate 15 24 Blood Pressure 202/126 H Pulse Oximetry 84 L 93 L 11/18/17 19:15 11/18/17 19:31 11/18/17 21:00 Temperature Pulse Rate 93 H 91 H 85 Respiratory Rate 16 16 16 Blood Pressure 172/107 H 159/99 H Pulse Oximetry 94 L 95 100 11/18/17 23:05 11/18/17 23:09 11/18/17 23:37 Temperature Pulse Rate 78 77 74 Respiratory Rate 25 H 16 Blood Pressure 217/126 H 202/137 H Pulse Oximetry 98 11/18/17 23:54 11/19/17 03:58 11/19/17 04:50 Temperature 98.0 F Pulse Rate 73 71 73 Respiratory Rate 20 Blood Pressure 191/111 H Pulse Oximetry 99 11/19/17 08:00 11/19/17 08:43 Temperature 98.1 F Pulse Rate 68 72 Respiratory Rate 16 10 L Blood Pressure 179/100 H Pulse Oximetry 95 95 Intake & Output 11/18/17 11/19/17 11/19/17 18:59 06:59 18:59 Weight 40.823 kg 40.823 kg Other: Date of Last Bowel Movement 11/18/17 Weight On Admission 40.823 kg - Constitutional no acute distress - Routine Respiratory Exam Present: CTA bilaterally - Routine Cardiovascular Exam Present: RRR - Routine Abdominal Exam Present: soft - Routine Extremities Exam Comments: no pedal edema. - Routine Neurological Exam Present: alert, oriented X3 Results - Labs CBC & Chem 7: 11/18/17 16:22 11/18/17 16:22 Laboratory Results - last 24 hr 11/18/17 11/18/17 11/18/17 16:22 16:22 18:20 WBC 5.1 RBC 4.80 Hgb 13.4 Hct 39.2 MCV 81.7 MCH 27.9 MCHC 34.2 RDW 15.1 Plt Count 196 MPV 8.5 Neut % (Auto) 74.0 H Lymph % (Auto) 17.1 [place] % (Auto) 7.5 Eos % (Auto) 0.9 Baso % (Auto) 0.5 Neut # (Auto) 3.8 Lymph # (Auto) 0.9 L [place] # (Auto) 0.4 Eos # (Auto) 0.0 Baso # (Auto) 0.0 WBC Differential . Differential Comment Auto diff final Sodium 136 Potassium 3.8 Chloride 99 Carbon Dioxide 28.7 Anion Gap 8 BUN 15 Creatinine 1.10 H Estimated GFR 62 L Random Glucose 86 Calcium 8.5 Total Bilirubin 0.3 AST 35 ALT 20 Alkaline Phosphatase 118 H Troponin I 0.07 H Total Protein 7.9 Albumin 2.7 L Urine Opiates Screen Pos H Ur Barbiturates Screen Neg Ur Amphetamines Screen Pos H U Benzodiazepines Scrn Neg Urine Cocaine Screen Neg U Cannabinoids Screen Pos H 11/18/17 23:35 WBC RBC Hgb Hct MCV MCH MCHC RDW Plt Count MPV Neut % (Auto) Lymph % (Auto) [place] % (Auto) Eos % (Auto) Baso % (Auto) Neut # (Auto) Lymph # (Auto) [place] # (Auto) Eos # (Auto) Baso # (Auto) WBC Differential Differential Comment Sodium Potassium Chloride Carbon Dioxide Anion Gap BUN Creatinine Estimated GFR Random Glucose Calcium Total Bilirubin AST ALT Alkaline Phosphatase Troponin I 0.05 Total Protein Albumin Urine Opiates Screen Ur Barbiturates Screen Ur Amphetamines Screen U Benzodiazepines Scrn Urine Cocaine Screen U Cannabinoids Screen - Imaging Impressions Chest X-Ray 11/18/17 16:20 CONCLUSION: 1. There are stable linear areas of scarring in both lower lungs. 2. No new or acute pulmonary infiltrates. 3. Stable cardiomegaly. Assessment and Plan - Assessment (1) COPD (chronic obstructive pulmonary disease) Code(s): J44.9 - Chronic obstructive pulmonary disease, unspecified Status: Acute (2) Hypoxia Code(s): R09.02 - Hypoxemia Status: Acute (3) Elevated troponin Code(s): R74.8 - Abnormal levels of other serum enzymes Status: Acute (4) HTN (hypertension) Code(s): I10 - Essential (primary) hypertension Status: Acute (5) Renal insufficiency Code(s): N28.9 - Disorder of kidney and ureter, unspecified Status: Acute (6) Tobacco abuse Code(s): Z72.0 - Tobacco use Status: Acute - Plan 1. COPD: Chronic Respiratory Failure w/ Acute Exacerbation. will start to taper down Solu-Medrol, DuoNeb q4h and q2h prn, Symbicort bid, Mucinex. CXR w/ no acute findings. 2. Hypoxia: O2 sat 84% on RA upon arrival, currently stable- off oxygen. 3. HTN: Uncontrolled. BP 202/126, HR 94, due to non-compliance w/ medications , resumed home meds, monitor BP, antihypertensives as needed for BP >180 4. Elevated Trop: Trop 0.07, likely due to demand, no c/o chest pain, no EKG changes. 5. Renal Insufficiency: Creatinine 1.10, previously 1.08 on 10/21/17, monitor I/ O, repeat labs in am. 6. Tobacco Abuse: Pt counselled, no NicoDerm to avoid vasoconstriction, Ativan prn. 7. DVT Prophylaxis: SCD/Teds Discharge Planning: dc home within th next 48 hrs if continues to improve. walk test before discharge.
[2017-11-19] MEDS: Senna/Docusate Sodium 8.6/50 MG Tablet PO SCH ×2 (09:57→21:16)
[2017-11-19] MEDS: guaiFENesin 600 MG ER Tablet PO SCH ×2 (09:57→21:17)
[2017-11-19] MEDS: Carvedilol 6.25 MG Tablet PO SCH ×2 (09:57→21:16)
[2017-11-19] MEDS: Budesonide-Formoterol 160/4.5 MCG 6 GM Inhaler INH SCH ×2 (09:59→21:17)
--- NOTE | 2017-11-19 10:00 | ECG ---
Date Performed: 11/18/2017 Time Performed: 16:00:08 PTAGE: 57 years EKG: Sinus rhythm RIGHT ATRIAL ENLARGEMENT POSSIBLE LEFT ATRIAL ENLARGEMENT RIGHT VENTRICULAR HYPERTROPHY AND ST-T MELECIO NGE ABNORMAL ECG INTERPRETATION BASED ON A DEFAULT AGE OF 40 YEARS NO PREVIOUS TRACING DOCTOR: Sindy Owens Interpretating Date/Time 11/19/2017 10:00:08
[2017-11-20] MEDS: MethylPREDNISolone Sod Succinate Inj 40 MG/ML Vial IV.PUSH SCH (02:18)
[2017-11-20 04:52] VITALS: BP 190/119; RESP 18; TEMP 97.8; O2SAT 95
[2017-11-20 06:30] VITALS: PULSE 78
== END 2017-11-20 09:20 | disposition left against medical advice (07) ==
LOC: NEDA 15:45 → NEPE 15:45 → NEDA 21:20 → N06 21:23
PROVIDERS: ADMIT Family Medicine; ATTEND Family Medicine